=== PATIENT | male | born 1940 | race Caucasian/White ===

== ENCOUNTER 2017-09-01 13:39 | Emergency (ER) | payer MEDICARE, OTHER, SELFPAY ==
[2017-09-01 13:40] VITALS: PULSE 77; RESP 22; TEMP 37.1; O2SAT 95; BMI 27.1
--- NOTE | 2017-09-01 14:04 | XR_ITS ---
XR chest portable Ordering Physician: Christina Elder MD Patient Age: 77 years: Male HISTORY: ITS.REASON: productive cough/SOB TECHNIQUE: AP portable upright chest digital COMPARISON :. Previous chest film 09/07/2015 & 09/08/2015 & June 2015. FINDINGS Today's higher contrast digital study accentuates markings particularly towards bases. Initially question subtle early infiltrate at the left base but on reviewing prior studies is similar density was seen here but merely exaggerated by today's excessively contrast digital technique. Thus I doubt there is been significant change but if symptoms progress follow-up 2 view chest would be warranted with standard image protocol. The upper lung dunn are clear. The right chest and right lung base appears stable. Subtle fibrotic changes towards bases similar to previous studies. Heart normal size with emiliana and mediastinal structures unremarkable IMPRESSION: Nothing definitely acute Mild chronic changes. Slight coarsening markings most evident toward lung bases with mild hyperexpansion Noted slight additional density towards left base but this is been seen on studies dating back to 2014 and likely reflects anterior fat-pad on left
[2017-09-01 14:28] LABS: Basophils % 0.7 % (0.1-2.0); Eosinophils # 0.3 K/mm3 (0.0-0.4); Eosinophils % 5.4 % (0.1-12.0); Hematocrit 38.8 % (42.0-52.0); Hemoglobin 12.5 g/dL (14.1-18.0); Lymphocytes # 1.3 K/mm3 (0.7-4.5); Lymphocytes % 25.6 K/mm3 (10-50); Mean Corpuscular HGB Conc 32.1 g/dL (31.8-35.4); Mean Corpuscular Volume 90.3 fl (80-94); Monocytes # 0.4 K/mm3 (0.1-1.0); Monocytes % 8.3 % (1.7-9.3); Neutrophils # 3.1 K/mm3 (1.8-7.8); Platelet Count 159 K/mm3 (142-424); Red Blood Count 4.29 M/mm3 (4.60-6.20); Red Cell Distribution Width 13.4 % (11.5-17.5); White Blood Count 5.2 K/mm3 (4.8-10.8)
--- NOTE | 2017-09-01 14:33 | HMH.EDSOB ---
ED Disposition Clinical Impression: Upper respiratory infection Qualifiers: URI type: unspecified URI Qualified Code(s): J06.9 - Acute upper respiratory infection, unspecified Disposition: Home, Self-Care Condition on Discharge: Good Instructions: Cough (Alternative Therapy) Additional Instructions: Rx Keflex for cough and bacteria in urine, see family MD next week if any concerns Prescriptions: cephALEXin [Keflex 500mg Cap] 500 mg PO QID #40 cap cephALEXin [Keflex 500mg Cap] 500 mg PO QID #40 cap - Critical Care Critical Care Time: No Attestation: On , the high probability of a clinically significant, sudden or life threatening deterioration of the following system(s) required my full and direct attention, intervention and personal management. The time I documented below is in addition to time spent performing reported procedures but includes the following listed in this critical care notation. Medical Decision Making Vital Signs: 09/01/17 13:40 Temperature 98.8 F Temperature Source Oral Pulse Rate [Right Brachial] 77 Respiratory Rate 22 Blood Pressure Source [Right Arm] Automatic Cuff Blood Pressure Position [Right Arm] Sitting 02 Sat by Pulse Oximetry 95 Oxygen Delivery Method Room Air - Lab Data Lab Results 09/01/17 13:40: WBC 5.2, RBC 4.29 L, Hgb 12.5 L, Hct 38.8 L, MCV 90.3, MCH 29.0, MCHC 32.1, RDW 13.4, Plt Count 159, MPV 8.0, Neut % (Auto) 60.0, Lymph % (Auto) 25.6, [place] % (Auto) 8.3, Eos % (Auto) 5.4, Baso % (Auto) 0.7, Neut # (Auto) 3.1, Lymph # (Auto) 1.3, [place] # (Auto) 0.4, Eos # (Auto) 0.3, Baso # (Auto) 0.0 09/01/17 14:30: Urine Color Yellow, Urine Appearance Cloudy, Urine pH 7.5, Ur Specific [place] 1.015, Urine Protein Negative, Urine Glucose (UA) Negative, Urine Ketones Negative, Urine Blood Negative, Urine Nitrate Negative, Urine Bilirubin Negative, Urine Urobilinogen 0.2, Ur Leukocyte Esterase Trace, Urine WBC 10-20, Ur Squamous Epith Cells Occasional, Urine Bacteria 1+ 09/01/17 14:33: Sodium 141, Potassium 3.7, Chloride 106, Carbon Dioxide 27, Anion Gap 11.7, BUN 10, Creatinine 0.78, Estimated Creat Clear 79, Estimated GFR 97, Est GFR ( Amer) 117, Glucose 142 H, Calcium 8.3 L, Total Bilirubin 0.5, AST 14 L, ALT 11 L, Alkaline Phosphatase 68, Total Protein 6.2 L, Albumin 3.4, Globulin 2.8, Albumin/Globulin Ratio 1.2 Result diagrams: 09/01/17 13:40 09/01/17 14:33 Orders (Tests/Meds): ED MEDICATIONS Discontinued Medications Generic Name Dose Route Start Last Admin Trade Name Freq PRN Reason Stop Dose Admin Methylprednisolone Sodium Succinate 125 mg 09/01/17 14:15 09/01/17 14:30 Solu-Medrol 125mg/2ml Vial IV 09/01/17 14:16 125 mg ONCE ONE Administration ORDERS Category Date Time Status Blood Culture Stat Micro 09/01/17 14:33 Received Urine Culture Stat Micro 09/01/17 14:30 Received - Radiology Data #1 Image(s): Chest Image Reviewed: Yes I have reviewed radiologist's interpretation Preliminary Findings: Normal/NAD, Abnormal Does raise possibility of infiltrate but was inconclusive - Ronaldo Inquiry Pt receiving controlled substance: No Medical Decision Making Narrative: Stable throughout. Resp/SOB HPI - General Chief Complaint: Shortness of Breath/Dyspnea Stated Complaint: SOB Mode of Arrival: EMS Limitations: No Limitations Description of Symptoms (Recalled from ER Triage Doc. by RN): SOB - History of Present Illness She states that he felt a little bit of heartburn last night. Back pain. Little short of breath with some cough. MD Complaint: cough Severity: mild Relieving factors: nothing Exacerbating factors: coughing Treatment prior to arrival: none - Related Data Home Medications Medication Instructions Recorded Confirmed Amlodipine Besylate [Norvasc 5mg 5 mg PO DAILY 09/01/17 09/01/17 tablet] Aspirin [Aspirin 325mg Tab] 325 mg PO DAILY 09/01/17 09/01/17 Divalproex Sodium [Depakote 125 mg PO
[2017-09-01 14:56] LABS: Appearance,Urine CLOUDY (Clear); Bilirubin,Urine Negative (Negative); Blood, Urine Negative (Negative); Color,Urine YELLOW (Yellow); Glucose,Urine (UA) Negative (Negative); Ketones,Urine Negative (Negative); Leukocyte Esterase,Urine TRACE (Negative); Microscopic, Urine URINE MICROSCOPIC (MICROSCOPIC); Nitrate,Urine Negative (Negative); PH,Urine 7.5 (5.0-8.5); Protein,Urine Negative (Negative); Specific Gravity, Urine 1.015 (1.005-1.030); Urobilinogen,Urine 0.2 EU/dl (0.2)
[2017-09-01 15:09] LABS: Bacteria,Urine 1+ /lpf; Squamous Epithelial Cell,Urine Occasional #/hpf (0-5)
[2017-09-01 15:29] LABS: Alanine Aminotransferase 11 U/L (12-78); Albumin Level 3.4 gm/dL (3.4-5.0); Albumin/Globulin Ratio 1.2 (1.1-1.8); Alkaline Phosphatase 68 U/L (46-116); Anion Gap 11.7 mEq/L (5-15); Aspartate Amino Transferase 14 U/L (15-37); Bilirubin,Total 0.5 mg/dL (0.2-1.0); Blood Urea Nitrogen 10 mg/dL (7-18); Calcium 8.3 mg/dL (8.5-10.1); Carbon Dioxide 27 mmol/L (21.0-32.0); Chloride 106 mmol/L (98-107); Creatinine Clearance Estimated 79 mL/min (0-300); Creatinine,Serum 0.78 mg/dL (0.70-1.30); Estimated Glomerular Filt Rate 97 ml/min (>60); GFR (African American) 117 ML/MIN (>60); Globulin 2.8 gm/dl (1.3-3.2); Glucose 142 mg/dL (74-106); Potassium 3.7 mmoL/L (3.5-5.1); Sodium 141 mmol/L (136-145); Total Protein,Serum 6.2 gm/dL (6.4-8.2)
== END 2017-09-01 18:38 | disposition home or self-care (01) ==
PROVIDERS: Emergency Provider Emergency Medicine
DX: J06.9 Acute upper respiratory infection, unspecified (principal); Z79.82 Long term (current) use of aspirin; Z95.0 Presence of cardiac pacemaker; F17.210 Nicotine dependence, cigarettes, uncomplicated; R41.82 Altered mental status, unspecified
CPT/HCPCS: 36415; 71045; 80053; 81001; 85025; 87040; 87086; 93005; 99283

== ENCOUNTER 2017-10-22 19:39 | Emergency (ER) | payer MEDICARE, OTHER, SELFPAY ==
[2017-10-22 19:40] VITALS: BP 142/78; PULSE 82; RESP 16; TEMP 37.2; O2SAT 97; BMI 28.4
[2017-10-22 19:41] VITALS: BMI 28.5
--- NOTE | 2017-10-22 19:42 | XR_ITS ---
XR chest portable HISTORY: ITS.REASON: COUGH ORDERING PHYSICIAN: Christina Elder MD PATIENT AGE: 77 years COMPARISON: 09/01/2017 FINDINGS: The cardiomediastinal silhouette and pulmonary vascularity are within normal limits. There is chronic coarsening of the bronchovascular markings as previously described with chronic changes in the lung bases. No lobar consolidation or collapse. IMPRESSION: Chronic changes, no acute finding
[2017-10-22 20:01] LABS: Basophils # 0.1 K/mm3 (0-0.2); Basophils % 0.9 % (0.1-2.0); Eosinophils # 0.4 K/mm3 (0.0-0.4); Eosinophils % 5.8 % (0.1-12.0); Hemoglobin 13.6 g/dL (14.1-18.0); Lymphocytes # 1.3 K/mm3 (0.7-4.5); Lymphocytes % 20.9 K/mm3 (10-50); Mean Corpuscular HGB Conc 31.6 g/dL (31.8-35.4); Mean Corpuscular Hemoglobin 28.6 pg (27.0-31.2); Mean Corpuscular Volume 90.4 fl (80-94); Mean Platelet Volume 7.8 fl (7.4-10.4); Monocytes # 0.5 K/mm3 (0.1-1.0); Monocytes % 7.9 % (1.7-9.3); Neutrophils # 3.9 K/mm3 (1.8-7.8); Neutrophils % 64.5 % (37.0-80.0); Platelet Count 208 K/mm3 (142-424); Red Blood Count 4.76 M/mm3 (4.60-6.20); Red Cell Distribution Width 13.4 % (11.5-17.5)
[2017-10-22 20:14] VITALS: PULSE 66; PULSE 69
[2017-10-22 20:49] LABS: Alanine Aminotransferase 19 U/L (12-78); Albumin Level 3.6 gm/dL (3.4-5.0); Albumin/Globulin Ratio 1.2 (1.1-1.8); Alkaline Phosphatase 74 U/L (46-116); Anion Gap 10.8 mEq/L (5-15); Aspartate Amino Transferase 10 U/L (15-37); Bilirubin,Total 0.3 mg/dL (0.2-1.0); Blood Urea Nitrogen 10 mg/dL (7-18); CKMB Relative Index 2.4 U/L (0-4.0); Calcium 8.4 mg/dL (8.5-10.1); Carbon Dioxide 28 mmol/L (21.0-32.0); Chloride 109 mmol/L (98-107); Creatine Kinase 63 U/L (39-308); Creatine Kinase MB 1.5 mg/ml (0.0-3.6); Creatinine Clearance Estimated 83 mL/min (0-300); Creatinine,Serum 0.79 mg/dL (0.70-1.30); Estimated Glomerular Filt Rate 95 ml/min (>60); GFR (African American) 115 ML/MIN (>60); Globulin 2.9 gm/dl (1.3-3.2); Glucose 105 mg/dL (74-106); Potassium 3.8 mmoL/L (3.5-5.1); Sodium 144 mmol/L (136-145); Total Protein,Serum 6.5 gm/dL (6.4-8.2); Troponin I < 0.02 ng/ml (0.00-0.06)
--- NOTE | 2017-10-22 21:14 | HMH.EDCP ---
ED Disposition Clinical Impression: Atypical chest pain Disposition: Home, Self-Care Condition on Discharge: Good Instructions: DI for Atypical Chest Pain Additional Instructions: see pcp for follow up Referrals: Raj Dooley MD [Primary Care Provider] - - Critical Care Critical Care Time: No Attestation: On 10/22/17, the high probability of a clinically significant, sudden or life threatening deterioration of the following system(s) required my full and direct attention, intervention and personal management. The time I documented below is in addition to time spent performing reported procedures but includes the following listed in this critical care notation. Medical Decision Making - Medical Records Medical records reviewed: Yes: I reviewed the patient's medical records. - Ronaldo Inquiry Pt receiving controlled substance: No Vital Signs: 10/22/17 19:40 10/22/17 20:14 Temperature 98.9 F Temperature Source Oral Pulse Rate 69 Pulse Rate [Right Brachial] 82 Respiratory Rate 16 Blood Pressure [Right Arm] 142/78 Blood Pressure Mean [Right Arm] 99 02 Sat by Pulse Oximetry 97 Oxygen Delivery Method Room Air - Lab Data Lab results reviewed: Yes: I reviewed the patient's lab results. Lab Results 10/22/17 19:45: WBC 6.0, RBC 4.76, Hgb 13.6 L, Hct 43.0, MCV 90.4, MCH 28.6, MCHC 31.6 L, RDW 13.4, Plt Count 208, MPV 7.8, Neut % (Auto) 64.5, Lymph % (Auto) 20.9, [place] % (Auto) 7.9, Eos % (Auto) 5.8, Baso % (Auto) 0.9, Neut # (Auto) 3.9, Lymph # (Auto) 1.3, [place] # (Auto) 0.5, Eos # (Auto) 0.4, Baso # (Auto) 0.1 10/22/17 19:45: Sodium 144, Potassium 3.8, Chloride 109 H, Carbon Dioxide 28, Anion Gap 10.8, BUN 10, Creatinine 0.79, Estimated Creat Clear 83, Estimated GFR 95, Est GFR ( Amer) 115, Glucose 105, Calcium 8.4 L, Total Bilirubin 0.3, AST 10 L, ALT 19, Alkaline Phosphatase 74, Total Creatine Kinase 63, CK-MB (CK-2) 1.5, CK-MB (CK-2) Rel Index 2.4, Troponin I < 0.02, Total Protein 6.5, Albumin 3.6, Globulin 2.9, Albumin/Globulin Ratio 1.2 10/22/17 19:45: Lactic Acid 1.0 Result diagrams: 10/22/17 19:45 10/22/17 19:45 Orders (Tests/Meds): ED MEDICATIONS Discontinued Medications Generic Name Dose Route Start Last Admin Trade Name Freq PRN Reason Stop Dose Admin Albuterol/Ipratropium 3 ml 10/22/17 19:44 10/22/17 20:18 Duoneb 3ml Neb IH 10/22/17 19:45 3 ml ONCE ONE Administration ORDERS Category Date Time Status XR chest portable Stat Exams 10/22/17 19:42 Taken Blood Culture Stat Micro 10/22/17 19:45 Received EKG Request [ECG Request by /Jeanette] Stat Y 10/22/17 19:42 Ordered - Radiology Data #1 Image(s): Chest Image Reviewed: Yes I reviewed the patient's radiology image Preliminary Findings: Normal/NAD - ECG Data Tracing #1 I reviewed this ECG and interpreted as documented below: Normal Sinus Rhythm: Yes Ischemic changes: non-specific ST-T wave changes Chest Pain HPI - General Chief Complaint: Chest Pain Stated Complaint: CP, and ABD pain Time Seen by Provider: 10/22/17 21:14 Mode of Arrival: EMS Source of Information: Patient, EMS, Medical Record Limitations: No Limitations Description of Symptoms (Recalled from ER Triage Doc. by RN): Abd pain, cp and cough - History of Present Illness HPI narrative: pt with occ chest pain and abd pain with no fever or vomiting and no fever or cough complaint: chest pain Onset (ago): day(s) Duration: intermittent Activity at onset: during rest Pain location: epigastric Severity: moderate - Related Data Home Medications Medication Instructions Recorded Confirmed Amlodipine Besylate [Norvasc 5mg 5 mg PO DAILY 09/01/17 10/22/17 tablet] Aspirin [Aspirin 325mg Tab] 325 mg PO DAILY 09/01/17 10/22/17 Divalproex Sodium [Depakote 125 mg PO HS 09/01/17 10/22/17 Sprinkle 125mg capsule] Lisinopril [Lisinopril 20mg Tab] 20 mg PO BID 09/01/17 10/22/17 Nabumetone 500 mg P
[2017-10-22 21:53] VITALS: BP 148/76; PULSE 78; RESP 20; TEMP 37; O2SAT 96
== END 2017-10-22 21:56 | disposition home or self-care (01) ==
PROVIDERS: Emergency Provider Emergency Medicine; PCP Emergency Medicine
DX: R07.89 Other chest pain (principal); I10 Essential (primary) hypertension; K21.9 Gastro-esophageal reflux disease without esophagitis; Z79.82 Long term (current) use of aspirin; F17.210 Nicotine dependence, cigarettes, uncomplicated
CPT/HCPCS: 71045; 80053; 82550; 82553; 83605; 84484; 85025; 87040; 93005; 96374; 96375; 99283

== ENCOUNTER 2017-10-25 18:24 | Emergency (ER) | payer MEDICARE, OTHER, SELFPAY ==
[2017-10-25 18:26] VITALS: BP 159/81; PULSE 87; RESP 20; TEMP 36.9; O2SAT 95; BMI 32.5
--- NOTE | 2017-10-25 18:31 | HMH.EDGENADL ---
ED Disposition Clinical Impression: Pneumonia, Tobacco use disorder, COPD (chronic obstructive pulmonary disease), Mental retardation Disposition: Home, Self-Care Condition on Discharge: Fair Prescriptions: Benzonatate [Tessalon Perle 100mg Cap] 200 mg PO Q4HP PRN #21 cap PRN Reason: Cough Azithromycin [Zithromax 250mg tab] 250 mg PO DIRECTED #6 tab cefUROXime axetil [Ceftin 250mg Tablet] 250 mg PO BID #20 tab Referrals: Raj Dooley MD [Primary Care Provider] - - Critical Care Critical Care Time: No Attestation: On 10/25/17, the high probability of a clinically significant, sudden or life threatening deterioration of the following system(s) required my full and direct attention, intervention and personal management. The time I documented below is in addition to time spent performing reported procedures but includes the following listed in this critical care notation. Medical Decision Making - Ronaldo Inquiry Pt receiving controlled substance: No Ronaldo was queried for this patient: No Vital Signs: 10/25/17 18:26 Temperature 98.5 F Temperature Source Oral Pulse Rate [Right Brachial] 87 Respiratory Rate 20 Blood Pressure [Right Arm] 159/81 Blood Pressure Mean [Right Arm] 107 Blood Pressure Source [Right Arm] Automatic Cuff Blood Pressure Position [Right Arm] Sitting 02 Sat by Pulse Oximetry 95 Oxygen Delivery Method Room Air - Lab Data Lab Results 10/25/17 18:35: WBC 6.6, RBC 4.43 L, Hgb 12.8 L, Hct 40.3 L, MCV 90.8, MCH 28.9, MCHC 31.9, RDW 13.4, Plt Count 197, MPV 7.8, Neut % (Auto) 64.3, Lymph % (Auto) 21.7, [place] % (Auto) 7.4, Eos % (Auto) 5.6, Baso % (Auto) 1.0, Neut # (Auto) 4.2, Lymph # (Auto) 1.4, [place] # (Auto) 0.5, Eos # (Auto) 0.4, Baso # (Auto) 0.1 10/25/17 18:35: Sodium 144, Potassium 3.4 L, Chloride 109 H, Carbon Dioxide 27, Anion Gap 11.4, BUN 12, Creatinine 0.83, Estimated Creat Clear 95, Estimated GFR 90, Est GFR ( Amer) 109, Glucose 114 H, Calcium 8.3 L, Total Bilirubin 0.2, AST 10 L, ALT 15, Alkaline Phosphatase 75, Total Creatine Kinase 58, CK-MB (CK-2) 1.3, CK-MB (CK-2) Rel Index 2.2, Troponin I < 0.02, Total Protein 6.3 L, Albumin 3.4, Globulin 2.9, Albumin/Globulin Ratio 1.2 10/25/17 19:25: Lactic Acid 0.8 Result diagrams: 10/25/17 18:35 10/25/17 18:35 Orders (Tests/Meds): ED MEDICATIONS Generic Name Dose Route Start Last Admin Trade Name Freq PRN Reason Stop Dose Admin Ceftriaxone Sodium 1 gm/ 50 mls @ 100 mls/hr 10/25/17 18:45 10/25/17 19:23 Sodium Chloride IV 11/08/17 18:44 100 mls/hr Q24H GISSELLE Administration Protocol ORDERS Category Date Time Status XR abdomen min 2V Stat Exams 10/25/17 18:34 Taken XR chest 2V Stat Exams 10/25/17 18:34 Taken Urinalysis and Microscopic Stat Lab 10/25/17 18:34 Ordered Valproic Acid, (Depakene) Stat Lab 10/25/17 18:35 Received Blood Culture Stat Micro 10/25/17 18:35 Received Sputum Culture & Gram Stain Stat Micro 10/25/17 18:34 Ordered ECG Request by /Jeanette Stat Y 10/25/17 18:34 Ordered - Radiology Data #1 Image(s): Chest Image Reviewed: Yes I reviewed the patient's radiology image Preliminary Findings: Abnormal Left basilar infiltrate. Medical Decision Narrative: I discussed Mr. Orantes's labs and chest x-ray with Dr. Dooley his primary care physician. Dr. Dooley recommended outpatient treatment for pneumonia. See him tomorrow in the snf. General Adult HPI - General Chief complaint: PAIN Stated complaint: ABDOMINAL PAIN Time Seen by Provider: 10/25/17 18:50 - History of Present Illness HPI narrative: 77 years old white male smoker multiple medical problems snf resident with multiple visits to the ED because of abdominal. Patient brought to the ED because of 4 days history of cough nonproductive and his recurrent abdominal pain. He denies having fever or chills nausea vomiting diarrhea. Onset (ago): day(s) (4 days of cough.) Locati
--- NOTE | 2017-10-25 18:34 | XR_ITS ---
XR chest 2V COMPARISON: PA and lateral chest 09/08/2005 HISTORY: Cough TECHNIQUE: PA and lateral chest FINDINGS: The lung dunn are well expanded. Again noted is chronic post inflammatory scarring in the left lower lobe stable and unchanged from previous studies. The left upper lung field right lung field are clear. Cardiac size is normal and the vascularity is normal and is no pleural fluid. IMPRESSION: Nonacute chest findings
--- NOTE | 2017-10-25 18:34 | ED_ITS ---
ED Disposition Clinical Impression: Pneumonia, Tobacco use disorder, COPD (chronic obstructive pulmonary disease), Mental retardation Disposition: Home, Self-Care Condition on Discharge: Fair Prescriptions: Benzonatate [Tessalon Perle 100mg Cap] 200 mg PO Q4HP PRN #21 cap PRN Reason: Cough Azithromycin [Zithromax 250mg tab] 250 mg PO DIRECTED #6 tab cefUROXime axetil [Ceftin 250mg Tablet] 250 mg PO BID #20 tab Referrals: Raj Dooley MD [Primary Care Provider] - - Critical Care Critical Care Time: No Attestation: On 10/25/17, the high probability of a clinically significant, sudden or life threatening deterioration of the following system(s) required my full and direct attention, intervention and personal management. The time I documented below is in addition to time spent performing reported procedures but includes the following listed in this critical care notation. Medical Decision Making - Ronaldo Inquiry Pt receiving controlled substance: No Ronaldo was queried for this patient: No Vital Signs: 10/25/17 18:26 Temperature 98.5 F Temperature Source Oral Pulse Rate [Right Brachial] 87 Respiratory Rate 20 Blood Pressure [Right Arm] 159/81 Blood Pressure Mean [Right Arm] 107 Blood Pressure Source [Right Arm] Automatic Cuff Blood Pressure Position [Right Arm] Sitting 02 Sat by Pulse Oximetry 95 Oxygen Delivery Method Room Air - Lab Data Lab Results 10/25/17 18:35: WBC 6.6, RBC 4.43 L, Hgb 12.8 L, Hct 40.3 L, MCV 90.8, MCH 28.9 , MCHC 31.9, RDW 13.4, Plt Count 197, MPV 7.8, Neut % (Auto) 64.3, Lymph % (Auto ) 21.7, [place] % (Auto) 7.4, Eos % (Auto) 5.6, Baso % (Auto) 1.0, Neut # (Auto) 4.2, Lymph # (Auto) 1.4, [place] # (Auto) 0.5, Eos # (Auto) 0.4, Baso # (Auto) 0.1 10/25/17 18:35: Sodium 144, Potassium 3.4 L, Chloride 109 H, Carbon Dioxide 27, Anion Gap 11.4, BUN 12, Creatinine 0.83, Estimated Creat Clear 95, Estimated GFR 90, Est GFR ( Amer) 109, Glucose 114 H, Calcium 8.3 L, Total Bilirubin 0.2, AST 10 L, ALT 15, Alkaline Phosphatase 75, Total Creatine Kinase 58, CK-MB (CK-2) 1.3, CK-MB (CK-2) Rel Index 2.2, Troponin I < 0.02, Total Protein 6.3 L, Albumin 3.4, Globulin 2.9, Albumin/Globulin Ratio 1.2 10/25/17 19:25: Lactic Acid 0.8 Result diagrams: 10/25/17 18:35 10/25/17 18:35 Orders (Tests/Meds): ED MEDICATIONS Generic Name Dose Route Start Last Admin Trade Name Freq PRN Reason Stop Dose Admin Ceftriaxone Sodium 1 gm/ 50 mls @ 100 mls/hr 10/25/17 18:45 10/25/17 19:23 Sodium Chloride IV 11/08/17 18:44 100 mls/hr Q24H GISSELLE Administration Protocol ORDERS Category Date Time Status XR abdomen min 2V Stat Exams 10/25/17 18:34 Taken XR chest 2V Stat Exams 10/25/17 18:34 Taken Urinalysis and Microscopic Stat Lab 10/25/17 18:34 Ordered Valproic Acid, (Depakene) Stat Lab 10/25/17 18:35 Received Blood Culture Stat Micro 10/25/17 18:35 Received Sputum Culture & Gram Stain Stat Micro 10/25/17 18:34 Ordered ECG Request by /Jeanette Stat Y 10/25/17 18:34 Ordered - Radiology Data #1 Image(s): Chest Image Reviewed: Yes I reviewed the patient's radiology image Preliminary Findings: Abnormal Left basilar infiltrate. Medical Decision Narrative: I discussed Mr. Orantes's labs and chest x-ray with Dr. Dooley his primary care physician. Dr. Dooley zandra
--- NOTE | 2017-10-25 18:34 | XR_ITS ---
XR abdomen min 2V COMPARISON: KUB and upright abdomen 11/30/2009 HISTORY: Chronic abdominal pain TECHNIQUE: KUB and upright abdomen FINDINGS: There is an increased amount of large and small bowel gas in a nonobstructive pattern. There are few short air-fluid levels within the colon and a few loops of small bowel. The appearance is most consistent with mild ileus likely due to enteritis. There is a surgical clip right upper quadrant likely from previous cholecystectomy. There are no abnormal soft tissue shadows and is no free air. IMPRESSION: Somewhat abnormal nonspecific bowel gas pattern most likely due to some degree of enteritis, certainly doubt obstruction
[2017-10-25 19:11] LABS: Basophils # 0.1 K/mm3 (0-0.2); Eosinophils # 0.4 K/mm3 (0.0-0.4); Eosinophils % 5.6 % (0.1-12.0); Hematocrit 40.3 % (42.0-52.0); Hemoglobin 12.8 g/dL (14.1-18.0); Lymphocytes # 1.4 K/mm3 (0.7-4.5); Lymphocytes % 21.7 K/mm3 (10-50); Mean Corpuscular HGB Conc 31.9 g/dL (31.8-35.4); Mean Corpuscular Hemoglobin 28.9 pg (27.0-31.2); Mean Corpuscular Volume 90.8 fl (80-94); Mean Platelet Volume 7.8 fl (7.4-10.4); Monocytes # 0.5 K/mm3 (0.1-1.0); Monocytes % 7.4 % (1.7-9.3); Neutrophils # 4.2 K/mm3 (1.8-7.8); Neutrophils % 64.3 % (37.0-80.0); Platelet Count 197 K/mm3 (142-424); Red Blood Count 4.43 M/mm3 (4.60-6.20); Red Cell Distribution Width 13.4 % (11.5-17.5); White Blood Count 6.6 K/mm3 (4.8-10.8)
[2017-10-25 19:31] LABS: Alanine Aminotransferase 15 U/L (12-78); Albumin Level 3.4 gm/dL (3.4-5.0); Albumin/Globulin Ratio 1.2 (1.1-1.8); Alkaline Phosphatase 75 U/L (46-116); Anion Gap 11.4 mEq/L (5-15); Aspartate Amino Transferase 10 U/L (15-37); Bilirubin,Total 0.2 mg/dL (0.2-1.0); Blood Urea Nitrogen 12 mg/dL (7-18); CKMB Relative Index 2.2 U/L (0-4.0); Calcium 8.3 mg/dL (8.5-10.1); Carbon Dioxide 27 mmol/L (21.0-32.0); Chloride 109 mmol/L (98-107); Creatine Kinase 58 U/L (39-308); Creatine Kinase MB 1.3 mg/ml (0.0-3.6); Creatinine Clearance Estimated 95 mL/min (0-300); Creatinine,Serum 0.83 mg/dL (0.70-1.30); Estimated Glomerular Filt Rate 90 ml/min (>60); GFR (African American) 109 ML/MIN (>60); Globulin 2.9 gm/dl (1.3-3.2); Glucose 114 mg/dL (74-106); Potassium 3.4 mmoL/L (3.5-5.1); Sodium 144 mmol/L (136-145); Total Protein,Serum 6.3 gm/dL (6.4-8.2); Troponin I < 0.02 ng/ml (0.00-0.06)
[2017-10-25 19:45] LABS: Lactic Acid 0.8 mmol/L (0.4-2.0)
[2017-10-25 20:02] LABS: Valproic Acid, (Depakene) 8.3 ug/mL (50-100)
[2017-10-25 20:38] VITALS: BP 00/00; PULSE 80; RESP 16; TEMP 36.6; O2SAT 97
== END 2017-10-25 21:22 | disposition home or self-care (01) ==
PROVIDERS: Emergency Provider Emergency Medicine; PCP Emergency Medicine
DX: J18.9 Pneumonia, unspecified organism (principal); F17.210 Nicotine dependence, cigarettes, uncomplicated; J44.9 Chronic obstructive pulmonary disease, unspecified; I10 Essential (primary) hypertension; K21.9 Gastro-esophageal reflux disease without esophagitis; Z79.82 Long term (current) use of aspirin; F79 Unspecified intellectual disabilities
CPT/HCPCS: 71046; 74019; 80053; 80164; 82550; 82553; 83605; 84484; 85025; 87040; 93005; 96365; 99211; 99283; 99284

== ENCOUNTER 2017-11-15 07:47 | Day surgery (SDC) | payer MEDICARE, OTHER, SELFPAY ==
[2017-11-15] VITALS (7 sets, daily range): BP systolic 119–145; BP diastolic 61–76; PULSE 58–74; RESP 18–20; TEMP 36.4–36.8; O2SAT 94–100; BMI 27.1
--- NOTE | 2017-11-15 08:35 | P.PN_ITS ---
[facility] Anesthesia Checklist - Patient Identification Patient Identification: Arm Band, Verbal (Name & ) - Structural Data Admitted From: Long-term Nursing Facility Consent for Planned Operative Procedure(s) Verified: Yes Verified Documents: Surgical Consent, History and Physical - NPO Status Verified Time NPO: 00:00 - Additional verifications Anesthesia Reactions: No - Airway Assessment C-Spine Mobility Assessed: Yes TMJ Mobility Assessed: Yes Dentition: Edentulous - Neurological Assessment Level of Consciousness: Awake (Poor historian) Hx Seizures: No Numbness or tingling in extremities: No - Anesthesia Plan Anesthesia Risk discussed: Yes Anesthesia Plan: Verified ASA Class: III Anesthesia Type: [facility] Anesthesia HX I have reviewed the patient's past medical history: Yes Medical History: Reports:: Chronic Obstructive Pulmonary Disease (COPD), Gastroesophageal Reflux Disease(GERD), Hypertension Denies:: Diabetes Mellitus Type 1, Diabetes Mellitus Type 2, Internal Pacemaker Other Medical History: Reports: Arthritis Other Surgeries: No: Pacemaker *Family Hx:: Unable to obtain
--- NOTE | 2017-11-15 09:04 | HMH.SCOPE ---
- Procedure: Date: 11/15/17 Procedure Performed:: Esophagogastroduodenoscopy with biopsy Indications:: This is a 77-year-old gentleman seen in consultation from Dr. Dooley for evaluation regarding heartburn. Performing Provider:: Segundo Flores MD Referring Provider:: Dr. Dooley Sedation:: Monitored anesthesia care Procedure:: After informed consent was obtained, the patient was taken to the endoscopy suite. Monitored anesthesia care ensued after he was transferred to the left lateral decubitus position. The gastroscope was advanced. Moderate tortuosity of the distal esophagus was noted. The gastroesophageal junction was at 40 cm. The stomach was entered. Moderate streaking distal gastritis was noted and biopsies of the antrum were obtained. Retroflexion revealed no significant abnormality. The pylorus is intubated. The duodenal mucosa appeared relatively normal. The gastroscope was carefully removed and the patient was transferred to recovery in stable condition. Findings:: Gastroesophageal junction at 40 cm Moderate streaking gastritis Specimens:: Antral biopsy Recommendations:: Continue proton pump inhibitor Begin H2 chris Follow-up pathology Complications:: No immediate Estimated blood obtained (mL): 1
== END 2017-11-15 10:00 | disposition home or self-care (01) ==
PROVIDERS: PCP Emergency Medicine; Visit Provider Surgery
PROC: 0DJ08ZZ Inspection of Upper Intestinal Tract, Via Natural or Artificial Opening Endoscopic (ICD-10-PCS; CPT 43235; principal; 2017-11-15 08:30)
DX: K29.60 Other gastritis without bleeding (principal)
CPT/HCPCS: 43239; 88305

== ENCOUNTER 2017-11-16 10:28 | Emergency (ER) | payer MEDICARE, OTHER, SELFPAY ==
[2017-11-16 10:28] VITALS: BP 142/69; PULSE 79; RESP 20; TEMP 37.1; O2SAT 97; BMI 25.7
--- NOTE | 2017-11-16 10:38 | XR_ITS ---
XR chest portable COMPARISON: Portable upright chest 10/22/2017 HISTORY: Cough TECHNIQUE: Portable upright chest FINDINGS: This is a fairly good inspiration. There are more prominent and accentuated bronchovascular markings at the lung bases on today's study than previously. I suspect possibly superimposed pneumonic infiltrate especially at the left base. The upper lung field remain clear. Cardiac size is normal and the vascularity is normal. IMPRESSION: Chronic basilar changes consistent with chronic bronchitis but I suspect possible superimposed early pneumonic infiltrates slightly more prominent left side than right.
--- NOTE | 2017-11-16 10:39 | CT_ITS ---
CT head/brain wo con COMPARISON: CT scan of brain noncontrast 11/08/2015 HISTORY: Altered mental status TECHNIQUE: Multiaxial scans obtained from base skull to the vertex and were performed without contrast. FINDINGS: The base of skull appears normal, the mastoids are clear. The basilar cisterns are prominent. There is mild diffuse ventricular megaly. 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 There Ventricular hypodensities consistent with chronic ischemic white matter changes. The sylvian fissures and cortical sulci are prominent. There are no extra-axial fluid collections. The bony calvarium appears intact. IMPRESSION: Findings of prominent cortical atrophy and mild chronic white matter changes and stable old ischemic infarct, no definite acute intracranial pathology noted.
--- NOTE | 2017-11-16 10:49 | HMH.EDABDPAI ---
ED Disposition Clinical Impression: Abdominal pain Disposition: Home, Self-Care Condition on Discharge: Good Additional Instructions: Follow up with Dr. Dooley as needed; work up looks normal today including head, abdomen, and pelvis CT and lab work. Referrals: Raj Dooley MD [Primary Care Provider] - - Critical Care Critical Care Time: No Attestation: On 11/16/17, the high probability of a clinically significant, sudden or life threatening deterioration of the following system(s) required my full and direct attention, intervention and personal management. The time I documented below is in addition to time spent performing reported procedures but includes the following listed in this critical care notation. Medical Decision Making - Medical Records Medical records reviewed: Yes: I reviewed the patient's medical records. - Ronaldo Inquiry Pt receiving controlled substance: No Vital Signs: 11/16/17 10:28 Temperature 98.7 F Temperature Source Oral Pulse Rate [Left Radial] 79 Respiratory Rate 20 Blood Pressure [Right Arm] 142/69 Blood Pressure Mean [Right Arm] 93 Blood Pressure Source [Right Arm] Automatic Cuff Blood Pressure Position [Right Arm] Sitting 02 Sat by Pulse Oximetry 97 Oxygen Delivery Method Room Air - Lab Data Lab results reviewed: Yes: I reviewed the patient's lab results. Lab Results 11/16/17 10:40: WBC 8.0, RBC 4.52 L, Hgb 13.0 L, Hct 41.2 L, MCV 91.2, MCH 28.7, MCHC 31.5 L, RDW 13.0, Plt Count 189, MPV 7.9, Neut % (Auto) 80.0, Lymph % (Auto) 11.5, [place] % (Auto) 6.3, Eos % (Auto) 1.7, Baso % (Auto) 0.5, Neut # (Auto) 6.4, Lymph # (Auto) 0.9, [place] # (Auto) 0.5, Eos # (Auto) 0.1, Baso # (Auto) 0.0 11/16/17 10:40: Sodium 145, Potassium 3.6, Chloride 109 H, Carbon Dioxide 29, Anion Gap 10.6, BUN 19 H, Creatinine 0.71, Estimated Creat Clear 79, Estimated GFR 108, Est GFR ( Amer) 130, Glucose 114 H, Calcium 9.0, Total Bilirubin 0.6, AST 19, ALT 15, Alkaline Phosphatase 73, Total Protein 6.2 L, Albumin 3.3 L, Globulin 2.9, Albumin/Globulin Ratio 1.1 11/16/17 11:25: Urine Color Yellow, Urine Appearance Clear, Urine pH 7.0, Ur Specific [place] 1.015, Urine Protein Negative, Urine Glucose (UA) Negative, Urine Ketones 1+, Urine Blood Trace-l, Urine Nitrate Negative, Urine Bilirubin Negative, Urine Urobilinogen 0.2, Ur Leukocyte Esterase Negative, Urine RBC Occasional, Urine WBC None, Ur Squamous Epith Cells Occasional, Urine Bacteria Trace Result diagrams: 11/16/17 10:40 11/16/17 10:40 Orders (Tests/Meds): ED MEDICATIONS Discontinued Medications Generic Name Dose Route Start Last Admin Trade Name Freq PRN Reason Stop Dose Admin Clonidine HCl 0.1 mg 11/16/17 12:11 11/16/17 12:16 Clonidine 0.1mg Tablet PO 11/16/17 12:12 Not Given ONCE ONE ORDERS Category Date Time Status Blood Culture Stat Micro 11/16/17 10:40 Received - Radiology Data #1 Image(s): Chest Image Reviewed: Yes I reviewed the patient's radiology image Preliminary Findings: Normal/NAD - CT Data CT Scan: Head, Abdomen, Pelvis Time Received: 13:[address] Reviewed: Yes: I discussed the CT results w/the radiologist Preliminary Findings: Normal/NAD (neg acute findings per radiology of head and abd/pelvis) Medical Decision Narrative: Pt alert, ambulatory to , does not have a surgical abdomen s/p endoscopy yesterday. Abdominal Pain HPI - General Chief Complaint: PAIN Stated Complaint: weakness Time Seen by Provider: 11/16/17 10:49 Mode of Arrival: EMS Limitations: No Limitations Description of Symptoms (Recalled from ER Triage Doc. by RN): Pt had biopsy yesterday for GI issue per report, stated per [employer] employee pt seems different today, cough is noted. Pt stated lower stomach pain - History of Present Illness HPI narrative: Baseline dementia limits ROS; EMS states [facility] told them patient didn't seem well and underwent GI study yesterday w/ biopsy.
--- NOTE | 2017-11-16 10:55 | CT_ITS ---
CT abdomen pelvis wo con COMPARISON: CT scan abdomen pelvis 09/07/2015 HISTORY: Generalized abdominal pain TECHNIQUE: Multiaxial scans obtained from hemidiaphragms the pelvic floor were performed without IV or oral contrast. Sagittal coronal reformats were evaluated as well. Findings: There is minimal bilateral basilar atelectasis noted. Cardiac size is normal, there is prominent coronary artery calcification noted. The liver spleen stomach and pancreas appear grossly normal. There has been a previous cholecystectomy. The adrenal glands are normal. The kidneys are normal size and in no calculi and is no obstructive uropathy. Again noted is a somewhat hazy appearance to the mesentery. There are several nodes at the root of mesentery though they appear to be less prominent than on the previous exam. The small bowel otherwise appears normal. I do not definite identify the appendix but no pericecal inflammatory changes. There is large amount stool in the cecum and ascending colon with scattered stool in the transverse and descending colon. There is a moderate amount stool in the rectum as well. There is a Carlson catheter at the urinary bladder via is partially decompressed. The prostate is slightly enlarged. IMPRESSION: Mild diffuse stranding of the mesentery with associated mesenteric adenopathy the less prominent than the previous study but again a lymphoproliferative disorder is a possibility.
[2017-11-16 11:11] LABS: Basophils % 0.5 % (0.1-2.0); Eosinophils # 0.1 K/mm3 (0.0-0.4); Eosinophils % 1.7 % (0.1-12.0); Hematocrit 41.2 % (42.0-52.0); Lymphocytes # 0.9 K/mm3 (0.7-4.5); Lymphocytes % 11.5 K/mm3 (10-50); Mean Corpuscular HGB Conc 31.5 g/dL (31.8-35.4); Mean Corpuscular Hemoglobin 28.7 pg (27.0-31.2); Mean Corpuscular Volume 91.2 fl (80-94); Mean Platelet Volume 7.9 fl (7.4-10.4); Monocytes # 0.5 K/mm3 (0.1-1.0); Monocytes % 6.3 % (1.7-9.3); Neutrophils # 6.4 K/mm3 (1.8-7.8); Platelet Count 189 K/mm3 (142-424); Red Blood Count 4.52 M/mm3 (4.60-6.20)
[2017-11-16 11:26] LABS: Alanine Aminotransferase 15 U/L (12-78); Albumin Level 3.3 gm/dL (3.4-5.0); Albumin/Globulin Ratio 1.1 (1.1-1.8); Alkaline Phosphatase 73 U/L (46-116); Anion Gap 10.6 mEq/L (5-15); Aspartate Amino Transferase 19 U/L (15-37); Bilirubin,Total 0.6 mg/dL (0.2-1.0); Blood Urea Nitrogen 19 mg/dL (7-18); Carbon Dioxide 29 mmol/L (21.0-32.0); Chloride 109 mmol/L (98-107); Creatinine Clearance Estimated 79 mL/min (0-300); Creatinine,Serum 0.71 mg/dL (0.70-1.30); Estimated Glomerular Filt Rate 108 ml/min (>60); GFR (African American) 130 ML/MIN (>60); Globulin 2.9 gm/dl (1.3-3.2); Glucose 114 mg/dL (74-106); Potassium 3.6 mmoL/L (3.5-5.1); Sodium 145 mmol/L (136-145); Total Protein,Serum 6.2 gm/dL (6.4-8.2)
[2017-11-16 11:37] LABS: Microscopic, Urine URINE MICROSCOPIC (MICROSCOPIC)
[2017-11-16 11:44] LABS: Appearance,Urine CLEAR (Clear); Bilirubin,Urine Negative (Negative); Blood, Urine TRACE-L (Negative); Color,Urine YELLOW (Yellow); Glucose,Urine (UA) Negative (Negative); Ketones,Urine 1+ (Negative); Leukocyte Esterase,Urine Negative (Negative); Nitrate,Urine Negative (Negative); Protein,Urine Negative (Negative); Specific Gravity, Urine 1.015 (1.005-1.030); Urobilinogen,Urine 0.2 EU/dl (0.2)
[2017-11-16 11:59] LABS: RBC,Urine Occasional #/hpf (0-3); Squamous Epithelial Cell,Urine Occasional #/hpf (0-5)
[2017-11-16 12:00] LABS: Bacteria,Urine Trace /lpf
--- NOTE | 2017-11-16 13:36 | PC.NURSE ---
Malia called for transport
[2017-11-16 14:04] VITALS: BP 179/87; PULSE 64; RESP 20; TEMP 37.1
== END 2017-11-16 14:05 | disposition home or self-care (01) ==
PROVIDERS: Emergency Provider Emergency Medicine; PCP Emergency Medicine
DX: R10.9 Unspecified abdominal pain (principal); J44.9 Chronic obstructive pulmonary disease, unspecified; K21.9 Gastro-esophageal reflux disease without esophagitis; I10 Essential (primary) hypertension; E11.9 Type 2 diabetes mellitus without complications; F79 Unspecified intellectual disabilities; F17.200 Nicotine dependence, unspecified, uncomplicated
CPT/HCPCS: 70450; 71045; 74176; 80053; 81001; 85025; 87040; 99283

== ENCOUNTER 2017-11-16 22:11 | Emergency (ER) | payer MEDICARE, OTHER, SELFPAY ==
[2017-11-16 22:12] VITALS: BP 139/66; PULSE 87; RESP 18; TEMP 37.2; O2SAT 96; BMI 24.3
[2017-11-16 22:39] LABS: Basophils # 0.1 K/mm3 (0-0.2); Basophils % 0.6 % (0.1-2.0); Eosinophils # 0.2 K/mm3 (0.0-0.4); Eosinophils % 2.2 % (0.1-12.0); Hematocrit 41.3 % (42.0-52.0); Hemoglobin 13.1 g/dL (14.1-18.0); Lymphocytes # 1.1 K/mm3 (0.7-4.5); Lymphocytes % 13.1 K/mm3 (10-50); Mean Corpuscular HGB Conc 31.8 g/dL (31.8-35.4); Mean Corpuscular Hemoglobin 28.3 pg (27.0-31.2); Mean Platelet Volume 7.9 fl (7.4-10.4); Monocytes # 0.7 K/mm3 (0.1-1.0); Monocytes % 8.4 % (1.7-9.3); Neutrophils # 6.2 K/mm3 (1.8-7.8); Neutrophils % 75.7 % (37.0-80.0); Platelet Count 206 K/mm3 (142-424); Red Blood Count 4.64 M/mm3 (4.60-6.20); Red Cell Distribution Width 13.1 % (11.5-17.5); White Blood Count 8.2 K/mm3 (4.8-10.8)
[2017-11-16 22:52] LABS: Anion Gap 12.3 mEq/L (5-15); Blood Urea Nitrogen 24 mg/dL (7-18); Carbon Dioxide 26 mmol/L (21.0-32.0); Chloride 108 mmol/L (98-107); Creatinine Clearance Estimated 79 mL/min (0-300); Creatinine,Serum 0.77 mg/dL (0.70-1.30); Estimated Glomerular Filt Rate 98 ml/min (>60); GFR (African American) 119 ML/MIN (>60); Glucose 130 mg/dL (74-106); Potassium 3.3 mmoL/L (3.5-5.1); Sodium 143 mmol/L (136-145)
[2017-11-16 22:57] LABS: Ethyl Alcohol 0 mg/dL (0-99)
--- NOTE | 2017-11-16 23:00 | HMH.EDAMS ---
ED Disposition Clinical Impression: Weakness Disposition: Home, Self-Care Condition on Discharge: Good Additional Instructions: hold all meds till sunday Referrals: Raj Dooley MD [Primary Care Provider] - - Critical Care Critical Care Time: No Attestation: On 11/16/17, the high probability of a clinically significant, sudden or life threatening deterioration of the following system(s) required my full and direct attention, intervention and personal management. The time I documented below is in addition to time spent performing reported procedures but includes the following listed in this critical care notation. Medical Decision Making - Medical Records Medical records reviewed: Yes: I reviewed the patient's medical records. - Ronaldo Inquiry Pt receiving controlled substance: No Vital Signs: 11/16/17 22:12 Temperature 99.0 F Temperature Source Rectal Pulse Rate [Right Radial] 87 Respiratory Rate 18 Blood Pressure [Right Arm] 139/66 Blood Pressure Mean [Right Arm] 90 Blood Pressure Source [Right Arm] Automatic Cuff Blood Pressure Position [Right Arm] Sitting 02 Sat by Pulse Oximetry 96 Oxygen Delivery Method Room Air - Lab Data Lab results reviewed: Yes: I reviewed the patient's lab results. Lab Results 11/16/17 22:25: WBC 8.2, RBC 4.64, Hgb 13.1 L, Hct 41.3 L, MCV 89.0, MCH 28.3, MCHC 31.8, RDW 13.1, Plt Count 206, MPV 7.9, Neut % (Auto) 75.7, Lymph % (Auto) 13.1, [place] % (Auto) 8.4, Eos % (Auto) 2.2, Baso % (Auto) 0.6, Neut # (Auto) 6.2, Lymph # (Auto) 1.1, [place] # (Auto) 0.7, Eos # (Auto) 0.2, Baso # (Auto) 0.1 11/16/17 22:25: Sodium 143, Potassium 3.3 L, Chloride 108 H, Carbon Dioxide 26, Anion Gap 12.3, BUN 24 H D, Creatinine 0.77, Estimated Creat Clear 79, Estimated GFR 98, Est GFR ( Amer) 119, Glucose 130 H, Plasma/Serum Alcohol 0 Result diagrams: 11/16/17 22:25 11/16/17 22:25 Orders (Tests/Meds): ED MEDICATIONS Generic Name Dose Route Start Last Admin Trade Name Fremuna PRN Reason Stop Dose Admin Sodium Chloride 1,000 mls @ 999 mls/hr 11/16/17 23:30 11/16/17 23:25 Sod Chlor 0.9% 1000ml Bag IV 11/17/17 00:30 999 mls/hr .Q1H1M GISSELLE Administration Discontinued Medications Generic Name Dose Route Start Last Admin Trade Name Izabella HUTCHISONN Reason Stop Dose Admin Sodium Chloride 500 mls @ 999 mls/hr 11/16/17 23:30 Sod Chlor 0.9% 1000ml Bag IV 11/17/17 00:00 .Q31M GISSELLE - ECG Data Tracing #1 I reviewed this ECG and interpreted as documented below: Normal Sinus Rhythm: Yes Ischemic changes: non-specific ST-T wave changes Altered Mental Status HPI - General Chief Complaint: Weakness Stated Complaint: weakness Time Seen by Provider: 11/16/17 22:15 Mode of Arrival: EMS Limitations: Physical Limitations Description of Symptoms (Recalled from ER Triage Doc. by RN): ems reports pt has been weak since colonoscopy yesterday, seen here for same earlier today and was discharged, returned to [facility], sent for continued tiredness and he would not get up - History of Present Illness HPI narrative: recent colonoscopy and has weakness but no chest pain or bleeding MD complaint: weakness Onset (ago): day(s) Timing confirmed by: caregiver Severity: similar to previous episodes Consistency of symptoms: waxing and waning Context: other (recent op procedure ) Treatments prior to arrival: IV fluid - Related Data Home Medications Medication Instructions Recorded Confirmed Amlodipine Besylate [Norvasc 5mg 5 mg PO DAILY 09/01/17 11/16/17 tablet] Aspirin [Aspirin 325mg Tab] 325 mg PO DAILY 09/01/17 11/16/17 Divalproex Sodium [Depakote 125 mg PO HS 09/01/17 11/16/17 Sprinkle 125mg capsule] Lisinopril [Lisinopril 20mg Tab] 20 mg PO BID 09/01/17 11/16/17 Nabumetone 500 mg PO BID 09/01/17 11/16/17 Omeprazole [Omeprazole 40mg 40 mg PO DAILY 09/01/17 11/16/17 Capsule] Quetiapine Fumarate 100 mg PO TID 09/01/17 11/16/17 [place]
[2017-11-17 00:18] VITALS: BP 136/78; PULSE 78; RESP 18; TEMP 36.9; O2SAT 99
== END 2017-11-17 00:21 | disposition home or self-care (01) ==
PROVIDERS: Emergency Provider Emergency Medicine; PCP Emergency Medicine
DX: R53.83 Other fatigue (principal); J44.9 Chronic obstructive pulmonary disease, unspecified; K21.9 Gastro-esophageal reflux disease without esophagitis; I10 Essential (primary) hypertension; Z79.82 Long term (current) use of aspirin
CPT/HCPCS: 70450; 71045; 74176; 80048; 80053; 81001; 85025; 87040; 93005; 96365; 99282; 99283

== ENCOUNTER 2017-12-12 08:47 | Outpatient (RCR) | payer MEDICARE, OTHER, SELFPAY | END 2017-12-12 08:48 | disposition home or self-care (01) | LOC: ST 08:47 | PROVIDERS: PCP Emergency Medicine; Visit Provider Emergency Medicine | DX: R13.10 Dysphagia, unspecified (principal) ==

== ENCOUNTER → 2017-12-12 09:09 | Outpatient (CLI) | payer MEDICARE, OTHER, SELFPAY ==
--- NOTE | 2017-12-12 | FL_ITS ---
FL FL barium swallow modified INDICATION: ITS.REASON: TROUBLE SWALLOWING dysphagia Aspiration history. On nectar consistency diet currently TECHNIQUE & FINDINGS: Study performed conjunction with speech pathologist Gabi wells. 8 minute 50 seconds fluoroscopy with this difficult exam. Difficult exam Patient study the lateral projection with video esophagram recording. Various barium consistencies utilized to study swallowing mechanism. Thin liquid spoon and straw.. [place] by spoon & straw, honey consistency with straw barium., ... pureed Food-thick pudding. The patient was quite drowsy and marginal uncooperative during the exam. There is neglect .. Food sits in the mouth. Poor AP movement. Liquids more likely spillover the tongue to initiate swallowing reflex. After swallowing there is significant residual persisting at the vallecula with diverticular in the patient would not respond to request for repeat swallow. Prominent volume piriform sinuses bilaterally. Overall demonstrates prominent impairment of swallowing mechanism. . With the liquid consistencies there is a consistent premature spillage over the back of tongue into the vallecula with recurrent excessive residual pooling within the vallecula after swallowing. The patient initiates change. Weak swallowing mechanism and reflects . IMPRESSION: Patient was somnolent marginally cooperative. Difficult study unable to follow commands . neglect on on oral phase. Food just sits in the mouth poor AP movement . The swallowing mechanism observed persistent recurrent generous residual at vallecula With liquids inconsistent premature spillage of the vallecula with residue and episodes of penetration into the laryngeal vestibule Please see review recommendations from speech pathology
--- NOTE | 2017-12-12 10:16 | HMH.SLMBS2 ---
Speech & Language Evaluation Speech/Language Mod Barium Swallow Start: 12/12/17 09:59 Freq: once Status: Complete Protocol: Document 12/12/17 09:59 LORRI (Rec: 12/12/17 10:16 LORRI [id number]) [facility] [place] Recommendations Diet Dietary Recommendations Other Comment NPO Referrals/Other Recommended Referrals Alternate Feeding Method Mod Barium Swallow Impressions Summary and Impressions Oral Phase Impression Severe Impairment Oral Phase Summary Holding food. Unable to propel bolus posteriorly Pharyngeal Phase Impression Severe Impairment Pharyngeal Phase Summary Significant pharyngeal residue . Unable to clear or initiate swallow on command. Penetration and aspiration noted. Unreliable spontaneous cough. Speech/Language MBS Assessment/Goals/Plan Assessment Date of Evaluation: 12/12/17 Evaluation Type Initial Certification Assessment/Problems Dysphagia Does Patient Qualify for Service No Qualify/Failure Comment Unable to follow directions. Recommendations PHYSICIAN CERTIFICATION: The specified therapy services are required, authorized, and reviewed every 30 days. Diet Recommendations NPO SL Swallow Guidelines High aspiration risk Additional Consults Recommended Other Comment Report given to physician. Pt . NPO at this time with recommendation of aternative feeding method. Plan Pt/Guardian verbally ack understanding No: Caregiver notified of of dx/prognosis/goals recommendations G -code Required Yes G-CODES ST Current Status [id number] ST Current Status Modifier CM-At least 80% but less than 100% impaired, limited or restricted ST Goal Status [id number] ST Goal Status Modifier CM-At least 80% but less than 100% impaired, limited or restricted Education Instructions provided Instructions given to staff accompanying Jayro to hospital. Dr. Dooley contacted via phone to provide results of swallow study and recommend NPO. Pt/Caregiver able to recall information Unable to ind. understand Mod Barium Swallow Setup Exam Setup Radiologist Laurent Ricci Level of Consciousness Drowsy Lethargic Position (degrees)
== END ==
PROVIDERS: PCP Emergency Medicine; Visit Provider Emergency Medicine
DX: R13.10 Dysphagia, unspecified (principal)
CPT/HCPCS: 70371; 92611

== ENCOUNTER 2017-12-12 14:17 | Observation (INO) ==
--- NOTE | 2017-12-12 14:24 | Emergency Department Note ---
ED Disposition Clinical Impression: Dysphagia, Aspiration into airway, Mental and behavioral problem in adult, Leg edema Disposition: Still a Patient Condition on Discharge: Fair Referrals: Raj Dooley MD [Primary Care Provider] - - Critical Care Critical Care Time: No Attestation: On , the high probability of a clinically significant, sudden or life threatening deterioration of the following system(s) required my full and direct attention, intervention and personal management. The time I documented below is in addition to time spent performing reported procedures but includes the following listed in this critical care notation. Medical Decision Making - Ronaldo Inquiry Pt receiving controlled substance: No Ronaldo was queried for this patient: No Vital Signs: 12/12/17 14:22 12/12/17 16:20 Temperature 98.2 F Temperature Source Oral Pulse Rate [Left Radial] 80 95 H Respiratory Rate 18 14 Blood Pressure [Right Arm] 145/80 162/76 Blood Pressure Mean [Right Arm] 101 104 Blood Pressure Source [Right Arm] Automatic Cuff Automatic Cuff Blood Pressure Position [Right Arm] Sitting Sitting 02 Sat by Pulse Oximetry 92 L 95 Oxygen Delivery Method Room Air Room Air - Lab Data Lab Results 12/12/17 14:21: WBC 8.9 D, RBC 4.73, Hgb 13.3 L, Hct 41.7 L, MCV 88.3, MCH 28.1 , MCHC 31.9, RDW 14.4, Plt Count 206, MPV 8.3, Neut % (Auto) 82.1 H, Lymph % ( Auto) 11.5, [place] % (Auto) 5.9, Eos % (Auto) 0.4, Baso % (Auto) 0.2, Neut # (Auto ) 7.3, Lymph # (Auto) 1.0, [place] # (Auto) 0.5, Eos # (Auto) 0.0, Baso # (Auto) 0.0 12/12/17 14:21: Sodium 146 H, Potassium 3.3 L, Chloride 108 H, Carbon Dioxide 30 D, Anion Gap 11.3, BUN 24 H D, Creatinine 0.72, Estimated Creat Clear 71, Estimated GFR 106, Est GFR ( Amer) 128 D, Glucose 116 H, Calcium 9.0, Total Bilirubin 0.6, AST 21, ALT 25, Alkaline Phosphatase 57, Troponin I < 0.02 , Total Protein 6.0 L, Albumin 3.2 L, Globulin 2.8, Albumin/Globulin Ratio 1.1 12/12/17 14:21: B-Natriuretic Peptide 27 Result diagrams: 12/12/17 14:21 12/12/17 14:21 Orders (Tests/Meds): ED MEDICATIONS Discontinued Medications Generic Name Dose Route Start Last Admin Trade Name Izabella PRN Reason Stop Dose Admin Furosemide 20 mg 12/12/17 14:27 12/12/17 14:44 Lasix 20mg/2ml Vial IV 12/12/17 14:28 20 mg ONCE ONE Administration ORDERS Category Date Time Status ECG Request by Dr/Nse Stat Y 12/12/17 14:26 Stop Req General Adult HPI - General Chief complaint: Weakness Stated complaint: feeding tube placement Time Seen by Provider: 12/12/17 14:20 - History of Present Illness HPI narrative: 77 years old white male history of mental retardation hypertension osteoarthritis and recently failed his modified barium swallow and he is high risk for aspiration. He is slowly ambulating and he developed bilateral lower extremity edema. He is in no acute cardiopulmonary distress. - Related Data Home Medications Medication Instructions Recorded Confirmed Amlodipine Besylate [Norvasc 5mg 5 mg PO DAILY 09/01/17 12/12/17 tablet] Aspirin [Aspirin 325mg Tab] 325 mg PO DAILY 09/01/17 12/12/17 Divalproex Sodium [Depakote 125 mg PO HS 09/01/17 12/12/17 Sprinkle 125mg capsule] Lisinopril [Lisinopril 20mg Tab] 20 mg PO BID 09/01/17 12/12/17 Nabumetone 500 mg PO BID 09/01/17 12/12/17 Omeprazole [Omeprazole 40mg 40 mg PO DAILY 09/01/17 12/12/17 Capsule] Quetiapine Fumarate 100 mg PO TID 09/01/17 12/12/17 Trazodone HCl 50 mg PO HS 09/01/17 12/12/17 Albuterol Sulfate [Albuterol HFA 2 puffs INHALATION Q4HWA 10/22/17 12/12/17 Inhaler] Benztropine Mesylate 0.5 mg PO BID 10/22/17 12/12/17 Bisoprolol Fumarate [Zebeta 5mg 5 mg .ROUTE DAILY 10/22/17 12/12/17 tablet] Divalproex Sodium [Depakote 375 mg PO DAILY 10/22/17 12/12/17 Sprinkle 125mg capsule] Ibuprofen [Motrin 600mg 600 mg PO Q8HP PRN 10/22/17 12/12/17 Tablet] Mag Hydrox/Aluminum Hyd/Simeth 30 ml .ROUTE Q4H PRN 10/22/17 12/12/17 [[place] Liquid] Mag Hydrox/Aluminum Hyd/Simeth 30 ml .ROUTE Q4HP PRN 10/22/17 12/12/17 [[place] Liquid] Azithromycin [Zithromax 250mg 250 mg PO DIRECTED 11/15/17 12/12/17 tab] acetaminophen 325 mg capsule 325 mg PO Q4-6H PRN 11/21/17 12/12/17 calcium carbonate 600 mg lozenges 600 mg PO DAILY 11/21/17 12/12/17 Potassium Chloride [K-Tab ER 20 20 meq PO DAILY 12/02/17 12/12/17 mEq] Previous Rx's Medication Instructions Recorded Benzonatate [Tessalon Perle 100mg 200 mg PO Q4HP PRN #21 cap 10/25/17 Cap] Allergies Allergy/AdvReac Type Severity Reaction Status Date / Time No Known Allergies Allergy Verified 11/21/17 13:36 [facility] History I have reviewed the patient's past medical history: Yes (Please see the records from [facility]. ) Medical History: Reports:: Chronic Obstructive Pulmonary Disease (COPD), Gastroesophageal Reflux Disease(GERD), Hypertension, Lung Disease Denies:: Cancer, Diabetes Mellitus Type 1, Diabetes Mellitus Type 2, Internal Pacemaker, MRSA, Seizures Other Medical History: Reports: Arthritis Other Surgeries: No: Pacemaker Amputation: No Comment: unable to obtain - Social History Smoking Status: Current every day smoker Tobacco Type: cigarettes # Packs/Day (cigarettes): 1 Alcohol Intake: never Alcohol Intake Frequency:: other Substance Use Type: denies use Family Hx:: Unable to obtain ROS Obtained: Yes All systems reviewed & no additional complaints Physical Exam - General General appearance: alert, in no apparent distress - Head Head exam: atraumatic, normocephalic, normal inspection - Eye Eye exam: Present: normal appearance, PERRL, EOMI - ENT ENT exam: Present: normal exam, normal oropharynx, mucous membranes moist, TM's normal bilaterally, normal external ear exam - Chest Chest inspection: Present: normal inspection, symmetric chest wall rise. Absent : tenderness - Respiratory Respiratory exam: Present: normal lung sounds bilaterally. Absent: respiratory distress - Cardiovascular Cardiovascular exam: Present: regular rate, normal rhythm. Absent: JVD - Abdominal Exam Abdominal exam: Present: soft, normal bowel sounds. Absent: distention, tenderness, guarding - Extremities Exam Extremities exam: Present: normal inspection, full ROM, normal capillary refill , pedal edema, other (2+ edema.). Absent: calf tenderness - Back Exam Back exam: Present: normal inspection. Absent: tenderness - Neurological Exam Neurological exam: Present: alert, CN II-XII intact, normal gait (He walks short steps. ), motor sensory deficit, reflexes normal - Psychiatric Psychiatric exam: Present: normal affect, normal mood - Skin Skin exam: Present: warm, dry, intact, normal color - Lymphatic Lymphatic Findings: no adenopathy
[2017-12-12 14:53] LABS: Basophils % 0.2 % (0.1-2.0); Eosinophils % 0.4 % (0.1-12.0); Hematocrit 41.7 % (42.0-52.0); Hemoglobin 13.3 g/dL (14.1-18.0); Lymphocytes % 11.5 K/mm3 (10-50); Mean Corpuscular HGB Conc 31.9 g/dL (31.8-35.4); Mean Corpuscular Hemoglobin 28.1 pg (27.0-31.2); Mean Corpuscular Volume 88.3 fl (80-94); Mean Platelet Volume 8.3 fl (7.4-10.4); Monocytes # 0.5 K/mm3 (0.1-1.0); Monocytes % 5.9 % (1.7-9.3); Neutrophils # 7.3 K/mm3 (1.8-7.8); Neutrophils % 82.1 % (37.0-80.0); Platelet Count 206 K/mm3 (142-424); Red Blood Count 4.73 M/mm3 (4.60-6.20); Red Cell Distribution Width 14.4 % (11.5-17.5); White Blood Count 8.9 K/mm3 (4.8-10.8)
[2017-12-12 15:02] LABS: Alanine Aminotransferase 25 U/L (12-78); Albumin Level 3.2 gm/dL (3.4-5.0); Albumin/Globulin Ratio 1.1 (1.1-1.8); Alkaline Phosphatase 57 U/L (46-116); Anion Gap 11.3 mEq/L (5-15); Aspartate Amino Transferase 21 U/L (15-37); Bilirubin,Total 0.6 mg/dL (0.2-1.0); Blood Urea Nitrogen 24 mg/dL (7-18); Carbon Dioxide 30 mmol/L (21.0-32.0); Chloride 108 mmol/L (98-107); Globulin 2.8 gm/dl (1.3-3.2); Glucose 116 mg/dL (74-106); Potassium 3.3 mmoL/L (3.5-5.1); Sodium 146 mmol/L (136-145)
--- NOTE | 2017-12-13 06:34 | Consult Report ---
*Admission Date: 12/12/17 *Chief complaint: feeding difficulty *History of present illness: This is a 77-year-old gentleman seen in consultation from Dr. Dooley for percutaneous endoscopic gastrostomy tube placement. Recent dysphagia and possible aspiration have been noted at his care facility. Modified barium swallow recently completed with recommendations for feeding tube placement. Review of Systems - Review of Systems Review of systems:: unable to obtain [facility] History Medical History: Reports:: Chronic Obstructive Pulmonary Disease (COPD), Gastroesophageal Reflux Disease(GERD), Hypertension, Lung Disease Denies:: Cancer, Diabetes Mellitus Type 1, Diabetes Mellitus Type 2, Internal Pacemaker, MRSA, Seizures Other Medical History: Reports: Arthritis Other Surgeries: No: Pacemaker Amputation: No - *Social History Smoking Status: Current every day smoker Tobacco Type: cigarettes # Packs/Day (cigarettes): 1 Alcohol Intake: never Alcohol Intake Frequency:: other Substance Use Type: denies use Occupational Status: unemployed Household Members: other - Psychiatric History Expresses thoughts of harming self/others: None Suicide Plan Description: No Plan *Family Hx:: Unable to obtain [facility] Medications Medication Instructions Recorded Confirmed Type Amlodipine Besylate [Norvasc 5mg 5 mg PO DAILY 09/01/17 12/12/17 History tablet] Aspirin [Aspirin 325mg Tab] 325 mg PO DAILY 09/01/17 12/12/17 History Divalproex Sodium [Depakote 500 mg PO HS 09/01/17 12/13/17 History Sprinkle 125mg capsule] Lisinopril [Lisinopril 20mg Tab] 20 mg PO BID 09/01/17 12/12/17 History Nabumetone 1,000 mg PO BID 09/01/17 12/13/17 History Omeprazole [Omeprazole 40mg 40 mg PO DAILY 09/01/17 12/12/17 History Capsule] Quetiapine Fumarate 100 mg PO TID 09/01/17 12/12/17 History Trazodone HCl 50 mg PO HSP PRN 09/01/17 12/13/17 History Albuterol Sulfate [Albuterol HFA 2 puffs INHALATION Q4HWA 10/22/17 12/12/17 History Inhaler] Benztropine Mesylate 0.5 mg PO TID 10/22/17 12/13/17 History Bisoprolol Fumarate [Zebeta 5mg 5 mg .ROUTE DAILY 10/22/17 12/12/17 History tablet] Divalproex Sodium [Depakote 375 mg PO DAILY 10/22/17 12/12/17 History Sprinkle 125mg capsule] Potassium Chloride [K-Tab ER 20 20 meq PO DAILY 12/02/17 12/12/17 History mEq] Acetaminophen [Acetaminophen Extra 1,000 mg PO Q6HP PRN 12/13/17 12/13/17 History Strength] Calcium Carbonate [Calcium Antacid] 500 mg PO Q6HP PRN 12/13/17 12/13/17 History Ibuprofen [Motrin 400mg 400 mg PO Q6HP PRN 12/13/17 12/13/17 History tablet] Loperamide HCl [Loperamide] 2 mg PO Q4HP PRN 12/13/17 12/13/17 History Mag Hydrox/Aluminum Hyd/Simeth 30 ml PO Q4HP PRN 12/13/17 12/13/17 History [Laverne-Lanta Liquid] Promethazine HCl [Phenergan 25mg 25 mg PO Q4HP PRN 12/13/17 12/13/17 History tab] Sucralfate [Carafate 1gm Tab] 1 gm PO TID 12/13/17 12/13/17 History guaiFENesin [Robitussin 200mg/10mL 200 mg PO Q4HP PRN 12/13/17 12/13/17 History Syrup Udc] raNITIdine HCl [Zantac] 150 mg PO BID 12/13/17 12/13/17 History Allergies Allergy/AdvReac Type Severity Reaction Status Date / Time No Known Allergies Allergy Verified 11/21/17 13:36 Exam Vital signs and Labs for Last 24 Hours: Temp Pulse Resp BP Pulse Ox 97.5 F L 82 12 156/77 94 L 12/13/17 04:00 12/13/17 04:00 12/13/17 04:00 12/13/17 04:00 12/13/17 04:00 Laboratory Results - last 24 hr 12/12/17 14:21: WBC 8.9 D, RBC 4.73, Hgb 13.3 L, Hct 41.7 L, MCV 88.3, MCH 28.1 , MCHC 31.9, RDW 14.4, Plt Count 206, MPV 8.3, Neut % (Auto) 82.1 H, Lymph % ( Auto) 11.5, [place] % (Auto) 5.9, Eos % (Auto) 0.4, Baso % (Auto) 0.2, Neut # (Auto ) 7.3, Lymph # (Auto) 1.0, [place] # (Auto) 0.5, Eos # (Auto) 0.0, Baso # (Auto) 0.0 12/12/17 14:21: Sodium 146 H, Potassium 3.3 L, Chloride 108 H, Carbon Dioxide 30 D, Anion Gap 11.3, BUN 24 H D, Creatinine 0.72, Estimated Creat Clear 71, Estimated GFR 106, Est GFR ( Amer) 128 D, Glucose 116 H, Calcium 9.0, Total Bilirubin 0.6, AST 21, ALT 25, Alkaline Phosphatase 57, Troponin I < 0.02 , Total Protein 6.0 L, Albumin 3.2 L, Globulin 2.8, Albumin/Globulin Ratio 1.1 12/12/17 14:21: B-Natriuretic Peptide 27 I & O for Last 24 hours: Intake & Output 12/10/17 12/11/17 12/12/17 12/13/17 11:59 11:59 11:59 11:59 Intake Total 1246 / 1246 Balance 1246 / 1246 Weight 170 lb 7 oz - Constitutional no acute distress - *Routine Respiratory Exam Absent: respiratory distress - *Routine Cardiovascular Exam Present: RRR - *Routine Abdominal Exam Present: soft. Absent: tenderness Results - Labs 12/12/17 14:21 12/12/17 14:21 Laboratory Results - last 24 hr 12/12/17 14:21: WBC 8.9 D, RBC 4.73, Hgb 13.3 L, Hct 41.7 L, MCV 88.3, MCH 28.1 , MCHC 31.9, RDW 14.4, Plt Count 206, MPV 8.3, Neut % (Auto) 82.1 H, Lymph % ( Auto) 11.5, [place] % (Auto) 5.9, Eos % (Auto) 0.4, Baso % (Auto) 0.2, Neut # (Auto ) 7.3, Lymph # (Auto) 1.0, [place] # (Auto) 0.5, Eos # (Auto) 0.0, Baso # (Auto) 0.0 12/12/17 14:21: Sodium 146 H, Potassium 3.3 L, Chloride 108 H, Carbon Dioxide 30 D, Anion Gap 11.3, BUN 24 H D, Creatinine 0.72, Estimated Creat Clear 71, Estimated GFR 106, Est GFR ( Amer) 128 D, Glucose 116 H, Calcium 9.0, Total Bilirubin 0.6, AST 21, ALT 25, Alkaline Phosphatase 57, Troponin I < 0.02 , Total Protein 6.0 L, Albumin 3.2 L, Globulin 2.8, Albumin/Globulin Ratio 1.1 12/12/17 14:21: B-Natriuretic Peptide 27 Assessment and Plan (1) Aspiration into airway Current visit: Yes Status: Acute Category: Medical Code(s): T17.908A - Unspecified foreign body in respiratory tract, part unspecified causing other injury, initial encounter (2) Dysphagia Current visit: Yes Status: Acute Category: Medical Code(s): R13.10 - Dysphagia, unspecified Recently failed modified barium swallow: Percutaneous endoscopic gastrostomy tube placement -he is scheduled for this procedure later today
[2017-12-13 06:43] LABS: Basophils % 0.2 % (0.1-2.0); Eosinophils # 0.1 K/mm3 (0.0-0.4); Eosinophils % 0.9 % (0.1-12.0); Lymphocytes # 0.6 K/mm3 (0.7-4.5); Mean Corpuscular HGB Conc 32.6 g/dL (31.8-35.4); Mean Corpuscular Hemoglobin 28.8 pg (27.0-31.2); Mean Corpuscular Volume 88.5 fl (80-94); Mean Platelet Volume 8.8 fl (7.4-10.4); Monocytes # 0.5 K/mm3 (0.1-1.0); Monocytes % 6.4 % (1.7-9.3); Neutrophils # 6.5 K/mm3 (1.8-7.8); Neutrophils % 84.6 % (37.0-80.0); Platelet Count 210 K/mm3 (142-424); Red Blood Count 4.53 M/mm3 (4.60-6.20); Red Cell Distribution Width 14.3 % (11.5-17.5); White Blood Count 7.6 K/mm3 (4.8-10.8)
[2017-12-13 07:47] LABS: Anion Gap 7.8 mEq/L (5-15)
[2017-12-13 07:58] LABS: Potassium 2.8 mmoL/L (3.5-5.1)
--- NOTE | 2017-12-13 08:26 | Pharmacy Consult Notes ---
[facility] Pharmacy VTE Monitoring - Patient Demographics Admission date: 12/12/17 Report Date: 12/13/17 Time: 08:26 Allergies/Adverse Reactions: Patient Allergies No Known Allergies Allergy (Verified 11/21/17 13:36) Height: 1.83 m Weight: 77.309 kg Patient Problems: Current Active Problems Dysphagia (Acute) Aspiration into airway (Acute) Mental and behavioral problem in adult (Acute) Leg edema (Acute) - VTE Risk Labs: VTE Related Lab Results Hgb 13.0 g/dL (14.1-18.0) L 12/13/17 06:27 Hct 40.0 % (42.0-52.0) L 12/13/17 06:27 Plt Count 210 K/mm3 (142-424) 12/13/17 06:27 BUN 21 mg/dL (7-18) H 12/13/17 06:27 Creatinine 0.67 mg/dL (0.70-1.30) L 12/13/17 06:27 Estimated Creat Clear 68 mL/min (0-300) 12/13/17 06:27 Was VTE Risk Assessment Performed: No VTE Score: 7 VTE Risk Level: Moderate Risk - Prophylaxis VTE Prophylaxis Ordered?: Yes Types of VTE Prophylaxis: TEDS Knee High Location of Applied Device: Bilateral Lower Extremeties - VTE Diagnosis Confirmed Treatment or plan recommended: Continue Current Treatment
--- NOTE | 2017-12-13 08:37 | Procedure Note ---
- Procedure: Date: 12/13/17 Procedure Performed:: Percutaneous endoscopic gastrostomy tube placement Indications:: This is a 77-year-old gentleman who recently failed a modified barium swallow. Recommendations for separate access for tube feedings were made. Performing Provider:: Segundo Flores MD Referring Provider:: Dr. Dooley Sedation:: Monitored anesthesia care Procedure:: After informed consent was obtained, the patient was taken to the endoscopy suite. Monitored anesthesia care ensued as he was maintained in a supine position. The gastroscope was advanced. The stomach was entered. Transillumination and impulse were both noted. The left upper quadrant was prepped and draped in a sterile fashion. After infiltration with local anesthetic a small transverse incision was made. The guidewire was placed in position under direct visualization. The guidewire was retrieved the snare. The gastrostomy tube was connected to the guidewire and it was then drawn back into position. The gastrostomy tube was secured in position. The endoscope was reentered into the stomach. The "bumper" was visualized. Good rotation was noted. No sign of active bleeding was noted. The gastroscope was carefully removed. A drain bag was secured. An abdominal binder was placed in position. The patient was transferred to recovery in stable condition. Findings:: No sign of active bleeding Good rotation Bumper in good position Recommendations:: Per post-PEG orders Complications:: No immediate Estimated blood obtained (mL): 5
--- NOTE | 2017-12-13 08:41 | Progress Note ---
[facility] Anesthesia Checklist - Patient Identification Patient Identification: Arm Band, Verbal (Name & ) - Structural Data Admitted From: Inpatient Consent for Planned Operative Procedure(s) Verified: Yes Verified Documents: Surgical Consent, History and Physical - NPO Status Verified Time NPO: 00:00 - Additional verifications Anesthesia Reactions: No - Airway Assessment C-Spine Mobility Assessed: Yes (Limited ROM) TMJ Mobility Assessed: Yes Dentition: Edentulous - Neurological Assessment Level of Consciousness: Inappropriate (MR) Hx Seizures: No Numbness or tingling in extremities: No - Anesthesia Plan Anesthesia Risk discussed: Yes Anesthesia Plan: Patient unable to respond/answer ASA Class: III Anesthesia Type: [facility] Anesthesia HX I have reviewed the patient's past medical history: Yes Medical History: Reports:: Chronic Obstructive Pulmonary Disease (COPD), Gastroesophageal Reflux Disease(GERD), Hypertension, Lung Disease Denies:: Cancer, Diabetes Mellitus Type 1, Diabetes Mellitus Type 2, Internal Pacemaker, MRSA, Seizures Other Medical History: Reports: Arthritis, Other (Mental retardation) Other Surgeries: No: Pacemaker Amputation: No *Family Hx:: Unable to obtain
--- NOTE | 2017-12-13 09:26 | History & Physical Report ---
*Admission Date: 12/12/17 *Chief complaint: aspiration *History of present illness: This is a 77-year-old gentleman seen in consultation from Dr. Dooley for percutaneous endoscopic gastrostomy tube placement. Recent dysphagia and possible aspiration have been noted at his care facility. Modified barium swallow recently completed with recommendations for feeding tube placement. [facility] History I have reviewed the patient's past medical history: Yes Medical History: Reports:: Chronic Obstructive Pulmonary Disease (COPD), Gastroesophageal Reflux Disease(GERD), Hypertension, Lung Disease Denies:: Cancer, Diabetes Mellitus Type 1, Diabetes Mellitus Type 2, Internal Pacemaker, MRSA, Seizures Other Medical History: Reports: Arthritis, Other (Mental retardation) Other Surgeries: No: Pacemaker Amputation: No - *Social History Smoking Status: Current every day smoker Tobacco Type: cigarettes # Packs/Day (cigarettes): 1 Alcohol Intake: never Alcohol Intake Frequency:: other Substance Use Type: denies use Occupational Status: unemployed Household Members: other - Psychiatric History Expresses thoughts of harming self/others: None Suicide Plan Description: No Plan *Family Hx:: Unable to obtain Review of Systems - Review of Systems Review of systems:: unable to obtain Meds Home Medications Medication Instructions Recorded Confirmed Type Amlodipine Besylate [Norvasc 5mg 5 mg PO DAILY 09/01/17 12/12/17 History tablet] Aspirin [Aspirin 325mg Tab] 325 mg PO DAILY 09/01/17 12/12/17 History Divalproex Sodium [Depakote 500 mg PO HS 09/01/17 12/13/17 History Sprinkle 125mg capsule] Lisinopril [Lisinopril 20mg Tab] 20 mg PO BID 09/01/17 12/12/17 History Nabumetone 1,000 mg PO BID 09/01/17 12/13/17 History Omeprazole [Omeprazole 40mg 40 mg PO DAILY 09/01/17 12/12/17 History Capsule] Quetiapine Fumarate 100 mg PO TID 09/01/17 12/12/17 History Trazodone HCl 50 mg PO HSP PRN 09/01/17 12/13/17 History Albuterol Sulfate [Albuterol HFA 2 puffs INHALATION Q4HP PRN 10/22/17 12/13/17 History Inhaler] Bisoprolol Fumarate [Zebeta 5mg 5 mg PO DAILY 10/22/17 12/13/17 History tablet] Divalproex Sodium [Depakote 375 mg PO DAILY 10/22/17 12/12/17 History Sprinkle 125mg capsule] Potassium Chloride [K-Tab ER 20 20 meq PO DAILY 12/02/17 12/12/17 History mEq] Acetaminophen [Acetaminophen Extra 1,000 mg PO Q6HP PRN 12/13/17 12/13/17 History Strength] Benztropine Mesylate 0.5 mg PO BID 12/13/17 12/13/17 History Calcium Carbonate [Calcium Antacid] 500 mg PO Q6HP PRN 12/13/17 12/13/17 History Ibuprofen [Motrin 400mg 400 mg PO Q6HP PRN 12/13/17 12/13/17 History tablet] Loperamide HCl [Loperamide] 2 mg PO Q4HP PRN 12/13/17 12/13/17 History Mag Hydrox/Aluminum Hyd/Simeth 30 ml PO Q4HP PRN 12/13/17 12/13/17 History [Laverne-Lanta Liquid] Promethazine HCl [Phenergan 25mg 25 mg PO Q4HP PRN 12/13/17 12/13/17 History tab] Sucralfate [Carafate 1gm Tab] 1 gm PO TID 12/13/17 12/13/17 History guaiFENesin [Robitussin 200mg/10mL 200 mg PO Q4HP PRN 12/13/17 12/13/17 History Syrup Udc] raNITIdine HCl [Zantac] 150 mg PO BID 12/13/17 12/13/17 History Allergies Allergy/AdvReac Type Severity Reaction Status Date / Time No Known Allergies Allergy Verified 11/21/17 13:36 Exam Vital signs and Labs for Last 24 Hours: Temp Pulse Resp BP Pulse Ox 98.0 F 80 18 152/57 95 12/13/17 07:42 12/13/17 07:42 12/13/17 07:42 12/13/17 07:42 12/13/17 07:42 Laboratory Results - last 24 hr 12/12/17 14:21: WBC 8.9 D, RBC 4.73, Hgb 13.3 L, Hct 41.7 L, MCV 88.3, MCH 28.1 , MCHC 31.9, RDW 14.4, Plt Count 206, MPV 8.3, Neut % (Auto) 82.1 H, Lymph % ( Auto) 11.5, [place] % (Auto) 5.9, Eos % (Auto) 0.4, Baso % (Auto) 0.2, Neut # (Auto ) 7.3, Lymph # (Auto) 1.0, [place] # (Auto) 0.5, Eos # (Auto) 0.0, Baso # (Auto) 0.0 12/12/17 14:21: Sodium 146 H, Potassium 3.3 L, Chloride 108 H, Carbon Dioxide 30 D, Anion Gap 11.3, BUN 24 H D, Creatinine 0.72, Estimated Creat Clear 71, Estimated GFR 106, Est GFR ( Amer) 128 D, Glucose 116 H, Calcium 9.0, Total Bilirubin 0.6, AST 21, ALT 25, Alkaline Phosphatase 57, Troponin I < 0.02 , Total Protein 6.0 L, Albumin 3.2 L, Globulin 2.8, Albumin/Globulin Ratio 1.1 12/12/17 14:21: B-Natriuretic Peptide 27 12/13/17 06:27: WBC 7.6, RBC 4.53 L, Hgb 13.0 L, Hct 40.0 L, MCV 88.5, MCH 28.8 , MCHC 32.6, RDW 14.3, Plt Count 210, MPV 8.8, Neut % (Auto) 84.6 H, Lymph % ( Auto) 8.0 L, [place] % (Auto) 6.4, Eos % (Auto) 0.9, Baso % (Auto) 0.2, Neut # ( Auto) 6.5, Lymph # (Auto) 0.6 L, [place] # (Auto) 0.5, Eos # (Auto) 0.1, Baso # ( Auto) 0.0 12/13/17 06:27: Sodium 148 H, Potassium 2.8 L*, Chloride 111 H, Carbon Dioxide 32, Anion Gap 7.8, BUN 21 H, Creatinine 0.67 L, Estimated Creat Clear 68, Estimated GFR 115, Est GFR ( Amer) 139, Glucose 125 H I & O for Last 24 hours: Intake & Output 12/10/17 12/11/17 12/12/17 12/13/17 11:59 11:59 11:59 11:59 Intake Total 1246 / 1246 Balance 1246 / 1246 Weight 170 lb 7 oz - Constitutional no acute distress, agitated - *Routine HEENT Exam Head: Present: normocephalic Eye: Present: PERRL ENT: Present: mucous membranes moist - *Routine Neck Exam Present: supple, full ROM - *Routine Respiratory Exam Present: CTA bilaterally - *Routine Cardiovascular Exam Present: RRR - *Routine Abdominal Exam Present: soft Comments: small 1/2 inch incison to abd, dressing and abd binder in place - *Routine Extremities Exam Present: full ROM - *Routine Skin Exam Comments: small incison to abd - *Routine Neurological Exam Present: alert, oriented X3, CN II-XII intact - Routine Psychiatric Exam Present: normal affect, normal thought process H&P: Result - Labs Labs: Short CBC 12/12/17 12/13/17 Range/Units 14:21 06:27 WBC 8.9 D 7.6 (4.8-10.8) K/mm3 Hgb 13.3 L 13.0 L (14.1-18.0) g/dL Hct 41.7 L 40.0 L (42.0-52.0) % Plt Count 206 210 (142-424) K/mm3 [facility] 12/12/17 12/13/17 14:21 06:27 Sodium 146 H 148 H Potassium 3.3 L 2.8 L* Chloride 108 H 111 H Carbon Dioxide 30 D 32 BUN 24 H D 21 H Creatinine 0.72 0.67 L Glucose 116 H 125 H Calcium 9.0 Cardiac Enzymes 12/12/17 Range/Units 14:21 Troponin I < 0.02 (0.00-0.06) ng/ml Liver Function 12/12/17 Range/Units 14:21 Total Bilirubin 0.6 (0.2-1.0) mg/dL AST 21 (15-37) U/L ALT 25 (12-78) U/L Alkaline Phosphatase 57 (46-116) U/L Albumin 3.2 L (3.4-5.0) gm/dL Assessment and Plan (1) Aspiration into airway Current visit: Yes Status: Acute Category: Medical Code(s): T17.908A - Unspecified foreign body in respiratory tract, part unspecified causing other injury, initial encounter (2) Dysphagia Current visit: Yes Status: Acute Category: Medical Code(s): R13.10 - Dysphagia, unspecified - Assessment and plan all Dx Assessment and Plan for all problems:: rounded with de, all orders per de. at 1030 at bedside and pt had pulled g tube out, discussed with kenzie, will place ng tube, change antibiotics, move to step down for close monitoring of vitals, family has decided to have hospice consult. Hospice consult ordered per family request.
--- NOTE | 2017-12-13 13:17 | Progress Note ---
Subjective Patient reports: other (resting; NG in place) Exam Vital signs and Labs for Last 24 Hours: Temp Pulse Resp BP Pulse Ox 98.7 F 85 20 147/65 100 12/13/17 12:00 12/13/17 12:00 12/13/17 12:00 12/13/17 12:00 12/13/17 12:00 Laboratory Results - last 24 hr 12/12/17 14:21: WBC 8.9 D, RBC 4.73, Hgb 13.3 L, Hct 41.7 L, MCV 88.3, MCH 28.1 , MCHC 31.9, RDW 14.4, Plt Count 206, MPV 8.3, Neut % (Auto) 82.1 H, Lymph % ( Auto) 11.5, [place] % (Auto) 5.9, Eos % (Auto) 0.4, Baso % (Auto) 0.2, Neut # (Auto ) 7.3, Lymph # (Auto) 1.0, [place] # (Auto) 0.5, Eos # (Auto) 0.0, Baso # (Auto) 0.0 12/12/17 14:21: Sodium 146 H, Potassium 3.3 L, Chloride 108 H, Carbon Dioxide 30 D, Anion Gap 11.3, BUN 24 H D, Creatinine 0.72, Estimated Creat Clear 71, Estimated GFR 106, Est GFR ( Amer) 128 D, Glucose 116 H, Calcium 9.0, Total Bilirubin 0.6, AST 21, ALT 25, Alkaline Phosphatase 57, Troponin I < 0.02 , Total Protein 6.0 L, Albumin 3.2 L, Globulin 2.8, Albumin/Globulin Ratio 1.1 12/12/17 14:21: B-Natriuretic Peptide 27 12/13/17 06:27: WBC 7.6, RBC 4.53 L, Hgb 13.0 L, Hct 40.0 L, MCV 88.5, MCH 28.8 , MCHC 32.6, RDW 14.3, Plt Count 210, MPV 8.8, Neut % (Auto) 84.6 H, Lymph % ( Auto) 8.0 L, [place] % (Auto) 6.4, Eos % (Auto) 0.9, Baso % (Auto) 0.2, Neut # ( Auto) 6.5, Lymph # (Auto) 0.6 L, [place] # (Auto) 0.5, Eos # (Auto) 0.1, Baso # ( Auto) 0.0 12/13/17 06:27: Sodium 148 H, Potassium 2.8 L*, Chloride 111 H, Carbon Dioxide 32, Anion Gap 7.8, BUN 21 H, Creatinine 0.67 L, Estimated Creat Clear 68, Estimated GFR 115, Est GFR ( Amer) 139, Glucose 125 H I & O for Last 24 hours: Intake & Output 12/11/17 12/12/17 12/13/17 12/14/17 11:59 11:59 11:59 11:59 Intake Total 1246 / 1246 Balance 1246 / 1246 Weight 170 lb 7 oz Narrative: The patient apparently became combative and pulled out his percutaneous endoscopic gastrostomy tube after returning to the floor. - Constitutional no acute distress Progress Note: A&P (1) Aspiration into airway Status: Acute Current Visit: Yes (2) Dysphagia Status: Acute Current Visit: Yes (3) PEG (percutaneous endoscopic gastrostomy) status Problem details: pt. pulled out after returning to floor Status: Acute Assessment and plan: Nasogastric tube to suction NPO status Consider PICC (TPN) or possible PPN Spectrum antibiotics for now Serial abdominal exams Gastrografin evaluation through nasogastric tube on Sunday, December 21 for evaluation regarding possible leak Current Visit: Yes
[2017-12-13 15:31] LABS: Anion Gap 9.9 mEq/L (5-15); Basophils % 0.1 % (0.1-2.0); Eosinophils # 0.1 K/mm3 (0.0-0.4); Eosinophils % 0.8 % (0.1-12.0); Hematocrit 37.4 % (42.0-52.0); Hemoglobin 12.8 g/dL (14.1-18.0); Lymphocytes # 0.7 K/mm3 (0.7-4.5); Lymphocytes % 5.8 K/mm3 (10-50); Mean Corpuscular HGB Conc 34.2 g/dL (31.8-35.4); Mean Corpuscular Hemoglobin 29.7 pg (27.0-31.2); Mean Corpuscular Volume 86.8 fl (80-94); Monocytes # 0.8 K/mm3 (0.1-1.0); Monocytes % 6.6 % (1.7-9.3); Neutrophils # 10.2 K/mm3 (1.8-7.8); Neutrophils % 86.8 % (37.0-80.0); Platelet Count 199 K/mm3 (142-424); Red Blood Count 4.31 M/mm3 (4.60-6.20); Red Cell Distribution Width 14.3 % (11.5-17.5); White Blood Count 11.7 K/mm3 (4.8-10.8)
[2017-12-13 15:32] LABS: Potassium 2.9 mmoL/L (3.5-5.1)
[2017-12-13 23:49] LABS: Lymphocytes % 6 % (10-50); Monocytes % 1 % (2-9); Neutrophils % 93 % (42-76); Total Cells Counted 100
[2017-12-13 23:50] LABS: Anisocytosis 1+
--- NOTE | 2017-12-14 08:10 | Progress Note ---
Subjective Patient reports: other (resting. per nursing, he is likely to be placed in "comfort care status" later today.) Exam Vital signs and Labs for Last 24 Hours: Temp Pulse Resp BP Pulse Ox 98.8 F 80 22 168/75 100 12/14/17 08:00 12/14/17 08:00 12/14/17 08:00 12/14/17 08:00 12/14/17 08:00 Laboratory Results - last 24 hr 12/13/17 15:16: WBC 11.7 H D, RBC 4.31 L, Hgb 12.8 L, Hct 37.4 L, MCV 86.8, MCH 29.7, MCHC 34.2, RDW 14.3, Plt Count 199, MPV 9.0, Neut % (Auto) 86.8 H, Lymph % (Auto) 5.8 L, [place] % (Auto) 6.6, Eos % (Auto) 0.8, Baso % (Auto) 0.1, Neut # ( Auto) 10.2 H, Lymph # (Auto) 0.7, [place] # (Auto) 0.8, Eos # (Auto) 0.1, Baso # ( Auto) 0.0, Total Counted 100, Neutrophils % (Manual) 93 H, Lymphocytes % (Manual ) 6 L, Monocytes % (Manual) 1 L, Platelet Estimate Normal, Anisocytosis 1+ 12/13/17 15:16: Sodium 148 H, Potassium 2.9 L*, Chloride 111 H, Carbon Dioxide 30, Anion Gap 9.9, BUN 16, Creatinine 0.73, Estimated Creat Clear 68, Estimated GFR 104, Est GFR ( Amer) 126, Glucose 143 H I & O for Last 24 hours: Intake & Output 12/11/17 12/12/17 12/13/17 12/14/17 11:59 11:59 11:59 11:59 Intake Total 1346 / 1346 2668 / 2668 Output Total 800 / 800 Balance 1346 / 1346 1868 / 1868 Weight 170 lb 7 oz 171 lb 7 oz - Constitutional no acute distress Progress Note: A&P (1) Aspiration into airway Status: Acute Current Visit: Yes (2) Dysphagia Status: Acute Current Visit: Yes (3) PEG (percutaneous endoscopic gastrostomy) status Problem details: pt. pulled out after returning to floor Status: Acute Assessment and plan: Continue NG for now. If patient is made "comfort care" discontinuation of NG is reasonable; otherwise , he will be scheduled for contrast study via NG early next week. Current Visit: Yes
--- NOTE | 2017-12-14 08:44 | Progress Note ---
Internal Medicine - PN: Subj *Date: 12/14/17 *Time: 08:41 Exam Vital signs and Labs for Last 24 Hours: Temp Pulse Resp BP Pulse Ox 98.8 F 80 22 168/75 100 12/14/17 08:00 12/14/17 08:00 12/14/17 08:00 12/14/17 08:00 12/14/17 08:00 Laboratory Results - last 24 hr 12/13/17 15:16: WBC 11.7 H D, RBC 4.31 L, Hgb 12.8 L, Hct 37.4 L, MCV 86.8, MCH 29.7, MCHC 34.2, RDW 14.3, Plt Count 199, MPV 9.0, Neut % (Auto) 86.8 H, Lymph % (Auto) 5.8 L, [place] % (Auto) 6.6, Eos % (Auto) 0.8, Baso % (Auto) 0.1, Neut # ( Auto) 10.2 H, Lymph # (Auto) 0.7, [place] # (Auto) 0.8, Eos # (Auto) 0.1, Baso # ( Auto) 0.0, Total Counted 100, Neutrophils % (Manual) 93 H, Lymphocytes % (Manual ) 6 L, Monocytes % (Manual) 1 L, Platelet Estimate Normal, Anisocytosis 1+ 12/13/17 15:16: Sodium 148 H, Potassium 2.9 L*, Chloride 111 H, Carbon Dioxide 30, Anion Gap 9.9, BUN 16, Creatinine 0.73, Estimated Creat Clear 68, Estimated GFR 104, Est GFR ( Amer) 126, Glucose 143 H I & O for Last 24 hours: Intake & Output 12/11/17 12/12/17 12/13/17 12/14/17 11:59 11:59 11:59 11:59 Intake Total 1346 / 1346 2668 / 2668 Output Total 800 / 800 Balance 1346 / 1346 1868 / 1868 Weight 170 lb 7 oz 171 lb 7 oz - Constitutional no acute distress - *Routine HEENT Exam Head: Present: normocephalic Eye: Present: PERRL ENT: Present: mucous membranes moist - *Routine Neck Exam Present: full ROM - *Routine Respiratory Exam Present: rhonchi - *Routine Cardiovascular Exam Present: RRR - *Routine Abdominal Exam Present: soft, tenderness Comments: Dressing to upper abdomen - *Routine Extremities Exam Present: full ROM - *Routine Skin Exam Comments: Incision to upper abdomen - *Routine Neurological Exam Present: alert - Routine Psychiatric Exam Present: normal affect, normal thought process Assessment and Plan (1) Aspiration into airway Current visit: Yes Status: Acute Category: Medical Code(s): T17.908A - Unspecified foreign body in respiratory tract, part unspecified causing other injury, initial encounter (2) Dysphagia Current visit: Yes Status: Acute Category: Medical Code(s): R13.10 - Dysphagia, unspecified (3) PEG (percutaneous endoscopic gastrostomy) status Problem details: pt. pulled out after returning to floor Current visit: Yes Status: Acute Category: Surgical Code(s): Z93.1 - Gastrostomy status - Assessment and plan all Dx Assessment and Plan for all problems:: Family request patient have hospice consult. Care management will discussed with hospice and family on status of comfort care only. If comfort care is requested per family will DC IV fluids, IV antibiotics, NG, and move patient to [facility] bed for comfort. Rounded with Dr. Dooley all orders per Miah
--- NOTE | 2017-12-14 15:46 | Discharge Summary ---
General - General Admission date:: 12/12/17 Discharge date: 12/14/17 HPI HPI: This is a 77-year-old gentleman seen in consultation from Dr. Dooley for percutaneous endoscopic gastrostomy tube placement. Recent dysphagia and possible aspiration have been noted at his care facility. Modified barium swallow recently completed with recommendations for feeding tube placement. Hospital Course Hospital Course: Family request for comfort care only, hospice has accepted pt for transfer to hospice care center. Pt at [facility] has been aspirating with eating and drinking, and had feeding tube placed yesterday, pt pulled out feeding tube and ng tube was placed and antibiotics to cover for increase risk. family wanted hospice consult. will transfer to hospice care center to [facility] comfort care only. Objective Vital signs: Temp Pulse Resp BP Pulse Ox 100.2 F H 94 H 28 H 164/96 100 12/14/17 14:00 12/14/17 14:00 12/14/17 14:00 12/14/17 14:00 12/14/17 14:00 no acute distress - *Routine HEENT Exam Head: Present: normocephalic Eye: Present: PERRL ENT: Present: mucous membranes moist - *Routine Neck Exam Present: supple, full ROM - *Routine Respiratory Exam Present: rhonchi - *Routine Cardiovascular Exam Present: RRR - *Routine Abdominal Exam Present: soft Comments: incison to abd - *Routine Extremities Exam Present: full ROM - *Routine Skin Exam Comments: dressing to abd - *Routine Neurological Exam Present: alert - Routine Psychiatric Exam Present: normal affect Results Labs on day of discharge: Labs from last 24 hours 12/13/17 12/13/17 15:16 15:16 WBC 11.7 H D RBC 4.31 L Hgb 12.8 L Hct 37.4 L MCV 86.8 MCH 29.7 MCHC 34.2 RDW 14.3 Plt Count 199 MPV 9.0 Neut % (Auto) 86.8 H Lymph % (Auto) 5.8 L [place] % (Auto) 6.6 Eos % (Auto) 0.8 Baso % (Auto) 0.1 Neut # (Auto) 10.2 H Lymph # (Auto) 0.7 [place] # (Auto) 0.8 Eos # (Auto) 0.1 Baso # (Auto) 0.0 Total Counted 100 Neutrophils % (Manual) 93 H Lymphocytes % (Manual) 6 L Monocytes % (Manual) 1 L Platelet Estimate Normal Anisocytosis 1+ Sodium 148 H Potassium 2.9 L* Chloride 111 H Carbon Dioxide 30 Anion Gap 9.9 BUN 16 Creatinine 0.73 Estimated Creat Clear 68 Estimated GFR 104 Est GFR ( Amer) 126 Glucose 143 H - Additional Comments rounded with de. all orders per de DS: Diagnosis - Discharge Diagnosis (1) Aspiration into airway Status: Acute (2) Dysphagia Status: Acute (3) PEG (percutaneous endoscopic gastrostomy) status Status: Acute Problem details: pt. pulled out after returning to floor Discharge Plan - Patient Discharge Instructions ACTIVITY: Continue current activity DIET: continue same diet - Follow up Plan Follow up with: Raj Dooley MD [Primary Care Provider] - Disposition: Xfer Other Home Medications: Home Medications Medication Instructions Recorded Confirmed Type Amlodipine Besylate [Norvasc 5mg 5 mg PO DAILY 09/01/17 12/12/17 History tablet] Aspirin [Aspirin 325mg Tab] 325 mg PO DAILY 09/01/17 12/12/17 History Divalproex Sodium [Depakote 500 mg PO HS 09/01/17 12/13/17 History Sprinkle 125mg capsule] Lisinopril [Lisinopril 20mg Tab] 20 mg PO BID 09/01/17 12/12/17 History Nabumetone 1,000 mg PO BID 09/01/17 12/13/17 History Omeprazole [Omeprazole 40mg 40 mg PO DAILY 09/01/17 12/12/17 History Capsule] Quetiapine Fumarate 100 mg PO TID 09/01/17 12/12/17 History Trazodone HCl 50 mg PO HSP PRN 09/01/17 12/13/17 History Albuterol Sulfate [Albuterol HFA 2 puffs INHALATION Q4HP PRN 10/22/17 12/13/17 History Inhaler] Bisoprolol Fumarate [Zebeta 5mg 5 mg PO DAILY 10/22/17 12/13/17 History tablet] Divalproex Sodium [Depakote 375 mg PO DAILY 10/22/17 12/12/17 History Sprinkle 125mg capsule] Potassium Chloride [K-Tab ER 20 20 meq PO DAILY 12/02/17 12/12/17 History mEq] Acetaminophen [Acetaminophen Extra 1,000 mg PO Q6HP PRN 12/13/17 12/13/17 History Strength] Benztropine Mesylate 0.5 mg PO BID 12/13/17 12/13/17 History Calcium Carbonate [Calcium Antacid] 500 mg PO Q6HP PRN 12/13/17 12/13/17 History Ibuprofen [Motrin 400mg 400 mg PO Q6HP PRN 12/13/17 12/13/17 History tablet] Loperamide HCl [Loperamide] 2 mg PO Q4HP PRN 12/13/17 12/13/17 History Mag Hydrox/Aluminum Hyd/Simeth 30 ml PO Q4HP PRN 12/13/17 12/13/17 History [[place] Liquid] Promethazine HCl [Phenergan 25mg 25 mg PO Q4HP PRN 12/13/17 12/13/17 History tab] Sucralfate [Carafate 1gm Tab] 1 gm PO TID 12/13/17 12/13/17 History guaiFENesin [Robitussin 200mg/10mL 200 mg PO Q4HP PRN 12/13/17 12/13/17 History Syrup Udc] raNITIdine HCl [Zantac] 150 mg PO BID 12/13/17 12/13/17 History Prescriptions/Medication Reconciliation: Continue Amlodipine Besylate [Norvasc 5mg tablet] 5 mg PO DAILY Trazodone HCl 50 mg PO HSP PRN PRN Reason: Sleep Divalproex Sodium [Depakote Sprinkle 125mg capsule] 500 mg PO HS Aspirin [Aspirin 325mg Tab] 325 mg PO DAILY Lisinopril [Lisinopril 20mg Tab] 20 mg PO BID Nabumetone 1,000 mg PO BID Quetiapine Fumarate 100 mg PO TID Bisoprolol Fumarate [Zebeta 5mg tablet] 5 mg PO DAILY Divalproex Sodium [Depakote Sprinkle 125mg capsule] 375 mg PO DAILY Sucralfate [Carafate 1gm Tab] 1 gm PO TID raNITIdine HCl [Zantac] 150 mg PO BID Acetaminophen [Acetaminophen Extra Strength] 1,000 mg PO Q6HP PRN PRN Reason: PAIN Ibuprofen [Motrin 400mg tablet] 400 mg PO Q6HP PRN PRN Reason: PAIN Promethazine HCl [Phenergan 25mg tab] 25 mg PO Q4HP PRN PRN Reason: Nausea And Vomiting guaiFENesin [Robitussin 200mg/10mL Syrup Udc] 200 mg PO Q4HP PRN PRN Reason: Cough Omeprazole [Omeprazole 40mg Capsule] 40 mg PO DAILY Albuterol Sulfate [Albuterol HFA Inhaler] 2 puffs INHALATION Q4HP PRN PRN Reason: Shortness Of Breath Potassium Chloride [K-Tab ER 20 mEq] 20 meq PO DAILY Calcium Carbonate [Calcium Antacid] 500 mg PO Q6HP PRN PRN Reason: Acid Reflux Mag Hydrox/Aluminum Hyd/Simeth [[place] Liquid] 30 ml PO Q4HP PRN PRN Reason: Acid Reflux Loperamide HCl [Loperamide] 2 mg PO Q4HP PRN PRN Reason: Diarrhea Benztropine Mesylate 0.5 mg PO BID
[2017-12-14 16:28] VITALS: BP 149/75
== END 2017-12-14 17:11 | disposition hospice, inpatient (51) ==
LOC: 2ND 14:17 → ER 14:17 → OBSVTOIN 17:50 → INTOOBSV 17:50 → 2ND 17:51
PROVIDERS: ADMIT Emergency Medicine; ATTEND Emergency Medicine